=== PATIENT | female | born 1945 | race Caucasian/White ===

== ENCOUNTER 2017-07-08 07:00 | Inpatient (IN) ==
[~2017-07-08 07:00] MED LIST: DEXTROSE 50% 25 GM/50 ML SYRINGE IV PRN; GLUCAGON 1 MG VIAL IM PRN; SODIUM CHLORIDE 0.9% 1,000 ML IV SCH
[2017-07-08] MEDS: CHLORHEXIDINE 0.12% ORAL RINSE 60 ML BOTTLE SWISH/SPIT SCH ×2 (09:08→21:31)
[2017-07-08] MEDS ORDERED: ALPRAZolam 0.5 MG TABLET PO PRN (09:37)
[2017-07-08] MEDS ORDERED: DEXTROSE 50% 25 GM/50 ML VIAL IV PRN (10:30)
[2017-07-08] MEDS: PANTOPRAZOLE 40 MG TABLET PO SCH (10:57)
[2017-07-08] MEDS: LOSARTAN 50 MG TABLET PO SCH (10:57)
[2017-07-08] MEDS: hydroCHLOROthiazide 12.5 MG CAPSULE PO SCH (10:57)
[2017-07-08] MEDS: POTASSIUM CHLORIDE 10 MEQ TABLET PO SCH ×2 (10:57→21:31)
[2017-07-08] MEDS: ASPIRIN EC 81 MG TABLET PO SCH (10:57)
[2017-07-08 11:37] LABS: ABG HCO3 20.9 MMOL/L (20-26); ABG Oxygen Saturation 98.5 % (95-100); ABG PCO2 33.3 MM HG (35-48); ABG PH 7.416 (7.35-7.45); ABG PO2 131.9 MM HG (80-95); ABG TCO2 21.9 MMOL/L (23-27)
[2017-07-08 11:48] LABS: Basophils % 0.4 % (0.0-0.8); Eosinophils % 0.1 % (0.00-10.9); Hematocrit 30.8 VOL% (35.7-47.0); Hemoglobin 10.1 GM/DL (12.0-16.0); Immature Granulocytes % 3.5 %; Immature Granulocytes Absolute 0.24 #; Lymphocytes # 1.2 10*3/uL (1.4-4.0); Lymphocytes % 17.6 % (21.3-54.2); Mean Corpuscular HGB Conc 32.8 GM/DL (32-36); Mean Corpuscular Hemoglobin 29 PG (27-34); Mean Corpuscular Volume 87.5 FL (87-102); Mean Platelet Volume 9.5 FL (9.6-12.0); Monocytes # 0.8 10*3/uL (0.11-0.8); Monocytes % 11.8 % (1.7-12.7); Neutrophils # 4.5 10*3/uL (1.4-7.4); Neutrophils % 66.6 % (38.7-73.9); Platelet Count 212 T/CUMM (130-400); Red Blood Count 3.52 MC/CUMM (3.8-5.5); Red Cell Distribution Width 17.9 % (9.3-17.3); White Blood Count 6.8 T/CUMM (4-12)
[2017-07-08 12:11] LABS: Band Neutrophils 1 % (0-10); Hypochromasia 1+; Lymphocytes 15 % (20-55); Microcytosis 1+; Myelocytes 1 %; Segmented Neutrophils 72 % (50-85); Total Cells Counted 100
[2017-07-08 12:12] LABS: Platelet Estimate Normal
[2017-07-08 12:55] LABS: Albumin 2.2 G/DL (3.4-5.0); Bilirubin,Total 0.4 MG/DL (0.2-1.0); Calcium 8.1 MG/DL (8.5-10.1); Osmolality,Calculated 268.1 MOS/KG (273-304); Potassium 3.8 MMOL/L (3.5-5.1); Total Protein 6.2 G/DL (6.4-8.3)
[2017-07-08] MEDS: NITROGLYCERIN 2% OINT 1 INCH/GM PACK TOP SCH ×3 (13:12→23:55)
[2017-07-08] MEDS: METOPROLOL TARTRATE 25 MG TABLET PO SCH ×2 (13:12→21:30)
[2017-07-08] MEDS ORDERED: ENOXAPARIN 40 MG/0.4 ML SYRINGE SUBCUT ONE (13:30)
[2017-07-08] MEDS: CALCIUM CARBONATE CHEW 500 MG TABLET PO PRN ×2 (15:00→22:03)
[2017-07-08] MEDS ORDERED: oxyCODONE/ACETAMINOPHEN 5-325 MG TABLET PO PRN (16:04)
[2017-07-08] MEDS: ACETAMINOPHEN 325 MG TABLET PO PRN ×2 (16:26→23:55)
[2017-07-08] MEDS: ALPRAZolam 0.5 MG TABLET PO SCH (21:30)
[2017-07-09] MEDS: NITROGLYCERIN 2% OINT 1 INCH/GM PACK TOP SCH ×3 (05:41→18:52)
[2017-07-09] MEDS: ACETAMINOPHEN 325 MG TABLET PO PRN ×3 (05:41→18:53)
[2017-07-09] MEDS: hydroCHLOROthiazide 12.5 MG CAPSULE PO SCH (08:38)
[2017-07-09] MEDS: POTASSIUM CHLORIDE 10 MEQ TABLET PO SCH ×2 (08:38→21:18)
[2017-07-09] MEDS: LOSARTAN 50 MG TABLET PO SCH (08:38)
[2017-07-09] MEDS: PANTOPRAZOLE 40 MG TABLET PO SCH (08:38)
[2017-07-09] MEDS: ASPIRIN EC 81 MG TABLET PO SCH (08:38)
[2017-07-09] MEDS: ALPRAZolam 0.5 MG TABLET PO SCH ×3 (08:38→21:18)
[2017-07-09] MEDS: CHLORHEXIDINE 0.12% ORAL RINSE 60 ML BOTTLE SWISH/SPIT SCH ×2 (08:39→21:19)
[2017-07-09] MEDS: METOPROLOL TARTRATE 25 MG TABLET PO SCH ×2 (08:39→21:18)
[2017-07-09] MEDS: CHLORHEXIDINE 4% SOLN 118 ML BOTTLE TOP SCH ×2 (16:20→22:42)
[2017-07-10] MEDS: NITROGLYCERIN 2% OINT 1 INCH/GM PACK TOP SCH ×2 (02:56→06:10)
[2017-07-10] MEDS ORDERED: FAMOTIDINE 20 MG TABLET PO ONE (05:30)
[2017-07-10] MEDS ORDERED: LORazepam 0.5 MG TABLET PO ONE (05:30)
[2017-07-10] MEDS ORDERED: VANCOMYCIN 1,000 MG VIAL ONE ×2 (05:36→06:27)
[2017-07-10] MEDS ORDERED: PAPAVERINE 60 MG/2 ML VIAL ONE (05:36)
[2017-07-10] MEDS ORDERED: CEFUROXIME INJ 1,500 MG in SODIUM CHLORIDE 0.9% 100 ML IV ONE (06:00)
[2017-07-10] MEDS ORDERED: PHENYLEPHRINE DRIP 20 MG/250 ML PREMIX IV ONE ×2 (06:04→09:48)
[2017-07-10] MEDS ORDERED: CALCIUM CHLORIDE 1,000 MG/10 ML VIAL IV ONE (06:04)
[2017-07-10] MEDS ORDERED: NITROGLYCERIN DRIP 50 MG/250 ML BOTTLE IV ONE (06:05)
[2017-07-10] MEDS ORDERED: LACTATED RINGERS 1,000 ML IV ONE (06:05)
[2017-07-10] MEDS ORDERED: SODIUM CHLORIDE 0.9% 1,000 ML IV ONE (06:05)
[2017-07-10] MEDS ORDERED: HEPARIN/NACL 0.9% 2 UNITS/ML 500 ML IV ONE (06:05)
[2017-07-10] MEDS: METOPROLOL TARTRATE 25 MG TABLET PO SCH (06:08)
[2017-07-10] MEDS: hydroCHLOROthiazide 12.5 MG CAPSULE PO SCH (06:08)
[2017-07-10] MEDS: PANTOPRAZOLE 40 MG TABLET PO SCH ×2 (06:08→19:42)
[2017-07-10] MEDS: LOSARTAN 50 MG TABLET PO SCH (06:10)
[2017-07-10] MEDS: CHLORHEXIDINE 4% SOLN 118 ML BOTTLE TOP SCH ×2 (06:11→11:13)
[2017-07-10] MEDS ORDERED: TRANEXAMIC ACID 1,000 MG/10 ML VIAL IV ONE (06:13)
[2017-07-10] MEDS ORDERED: SODIUM CHLORIDE 0.9% 1,000 ML IV SCH (07:00)
[2017-07-10 07:38] LABS: ABG Base Excess -4.2 MMOL/L (-2.5-2.5); ABG HCO3 20.9 MMOL/L (20-26); ABG PCO2 35.9 MM HG (35-48); ABG PH 7.366 (7.35-7.45); ABG TCO2 19.1 MMOL/L (23-27); Glucose Heart Surgery 87 MG/DL (74-106); Hematocrit Heart Surgery 26.5 PERCENT (37-47); Hemoglobin Heart Surgery 8.5 G/DL (12.0-16.0); Ionized Calcium Arterial 1.15 MMOL/L (1.21-1.46); PCO2 Patient Temp Arterial 35.9 MMHG; PH Patient Temp Arterial 7.366; Patient Temperature 37 CELCIUS; Potassium Heart/CVR 3.5 MMOL/L (3.5-5.1); Sodium Heart/CVR 135 MMOL/L (135-145)
[2017-07-10 08:35] LABS: Hematocrit Heart Surgery 26.5 PERCENT (37-47); Hemoglobin Heart Surgery 8.5 G/DL (12.0-16.0); PCO2 Patient Temp Venous 34.1 MM HG; PH Patient Temp Venous 7.368; PO2 Patient Temp Venous 40.8 MM HG; Potassium Heart/CVR 4.3 MMOL/L (3.5-5.1); VBG HCO3 20.1 MEQ/L (24-28); VBG Oxygen Saturation 84.2 %; VBG PCO2 39.4 MMHG (41-51); VBG PH 7.326; VBG PO2 50.1 MMHG (17-40)
[2017-07-10 08:54] LABS: Apearance,Urine CLEAR (Clear); Bacteria,Urine Occasional /HPF (Few); Bilirubin,Urine Negative (Negative); Blood, Urine Moderate mg/dL (Negative); Glucose,Urine (UA) Negative (Negative); Hyaline Casts,Urine 1 /LPF (0-3); Ketones,Urine Negative (Negative); Mucus,Urine Occasional /LPF (Occasional); Nitrite,Urine Negative (Negative); Protein,Urine 30 MG/DL; RBC,Urine 1 /HPF (0-4); Urine Color Yellow (Yellow); Urine Specific Gravity 1.005 (1.001-1.035); Urine Urobilinogen < 2.0 EU/DL (0.2-1.0); WBC,Urine <1 /HPF (0-6)
[2017-07-10 09:09] LABS: Hemoglobin Heart Surgery 9.4 G/DL (12.0-16.0); PCO2 Patient Temp Venous 33.6 MM HG; PH Patient Temp Venous 7.458; Potassium Heart/CVR 3.9 MMOL/L (3.5-5.1); VBG Base Excess -0.4 MEQ/L (0-4); VBG HCO3 23.5 MEQ/L (24-28); VBG Oxygen Saturation 71.7 %; VBG PCO2 35.1 MMHG (41-51); VBG PH 7.443; VBG PO2 30.5 MMHG (17-40)
[2017-07-10 09:10] LABS: PO2 Patient Temp Venous 33.6 MM HG
[2017-07-10] MEDS ORDERED: PHENYLEPHRINE DRIP 40 MG/250 ML PREMIX IV ONE (09:27)
[2017-07-10] MEDS ORDERED: NITROPRUSSIDE 50 MG/2 ML VIAL ONE (09:27)
[2017-07-10] MEDS ORDERED: CALCIUM CHLORIDE 1,000 MG/10 ML SYRINGE IV ONE (09:28)
[2017-07-10] MEDS ORDERED: SODIUM BICARBONATE 50 MEQ/50 ML SYRINGE IV ONE ×4 (09:28→21:29)
[2017-07-10 09:41] LABS: ABG Base Excess -1.4 MMOL/L (-2.5-2.5); ABG HCO3 23.3 MMOL/L (20-26); ABG PCO2 37.2 MM HG (35-48); Glucose Heart Surgery 160 MG/DL (74-106); Hematocrit Heart Surgery 31.1 PERCENT (37-47); Ionized Calcium Arterial 1.25 MMOL/L (1.21-1.46); PCO2 Patient Temp Arterial 37.2 MMHG; Patient Temperature 37 CELCIUS; Potassium Heart/CVR 4.1 MMOL/L (3.5-5.1); Sodium Heart/CVR 131 MMOL/L (135-145)
[2017-07-10] MEDS ORDERED: DEXTROSE 5% KCL 20 MEQ 20 MEQ/1,000 ML BAG IV ONE (09:48)
[2017-07-10] MEDS ORDERED: ALBUMIN 25% 25 GM/100 ML VIAL IV ONE (09:48)
[2017-07-10] MEDS ORDERED: MAGNESIUM SULFATE 1 GM/2 ML VIAL ONE (09:49)
[2017-07-10] MEDS ORDERED: methylPREDNISolone SOD SUC 1,000 MG/8 ML VIAL ONE (09:49)
[2017-07-10] MEDS ORDERED: FUROSEMIDE 20 MG/2 ML VIAL ONE (09:49)
[2017-07-10] MEDS ORDERED: MANNITOL 12.5 GM/50 ML VIAL IV ONE (09:49)
[2017-07-10] MEDS ORDERED: PROTAMINE SULFATE 50 MG/5 ML VIAL IV ONE ×3 (09:49→11:25)
[2017-07-10] MEDS ORDERED: HEPARIN 10,000 UNIT/10 ML VIAL ONE (09:49)
[2017-07-10] MEDS ORDERED: POTASSIUM CHLORIDE 20 MEQ/10 ML VIAL ONE (09:50)
[2017-07-10] MEDS ORDERED: POTASSIUM CHLORIDE RIDER 100 ML IV ONE (09:52)
[2017-07-10] MEDS ORDERED: ALBUMIN 5% 12.5 GM/250 ML VIAL IV ONE (10:52)
[2017-07-10] MEDS ORDERED: DEXTROSE 50% 25 GM/50 ML VIAL IV PRN ×2 (11:10)
[2017-07-10] MEDS ORDERED: LACTATED RINGERS 250 ML IV PRN (11:10)
[2017-07-10] MEDS ORDERED: MIDAZOLAM 10 MG/2 ML VIAL IV PRN (11:10)
[2017-07-10] MEDS ORDERED: VECURONIUM 10 MG VIAL IV PRN ×2 (11:10)
[2017-07-10] MEDS ORDERED: INSULIN REGULAR 100 UNIT/ML IV PRN (11:10)
[2017-07-10] MEDS ORDERED: PHENYLEPHRINE DRIP 40 MG/250 ML PREMIX IV PRN (11:10)
[2017-07-10] MEDS ORDERED: MAGNESIUM SULF RIDER 2 GM in PREMIX 1 EACH IV PRN (11:10)
[2017-07-10] MEDS ORDERED: ONDANSETRON 4 MG/2 ML VIAL IV PRN (11:10)
[2017-07-10] MEDS ORDERED: MAGNESIUM SULF RIDER 4 GM in PREMIX 1 EACH IV PRN (11:10)
[2017-07-10] MEDS ORDERED: ACETAMINOPHEN 650 MG SUPP RECTAL PRN (11:10)
[2017-07-10] MEDS ORDERED: INSULIN REGULAR 100 UNIT/ML IV ONE (11:10)
[2017-07-10] MEDS ORDERED: CALCIUM CHLORIDE 1,000 MG/10 ML SYRINGE IV PRN (11:10)
[2017-07-10] MEDS: SODIUM CHLORIDE 0.45% 1,000 ML IV SCH ×2 (11:14→11:24)
[2017-07-10 11:18] LABS: Basophils % 0.2 % (0.0-0.8); Eosinophils % 0.1 % (0.00-10.9); Hematocrit 32.5 VOL% (35.7-47.0); Hemoglobin 11.4 GM/DL (12.0-16.0); Immature Granulocytes Absolute 0.51 #; Lymphocytes # 0.9 10*3/uL (1.4-4.0); Lymphocytes % 5.3 % (21.3-54.2); Mean Corpuscular HGB Conc 35.1 GM/DL (32-36); Mean Corpuscular Hemoglobin 30 PG (27-34); Mean Platelet Volume 9.5 FL (9.6-12.0); Monocytes # 0.9 10*3/uL (0.11-0.8); Neutrophils # 14.9 10*3/uL (1.4-7.4); Neutrophils % 86.4 % (38.7-73.9); Platelet Count 182 T/CUMM (130-400); Red Blood Count 3.87 MC/CUMM (3.8-5.5); Red Cell Distribution Width 15.8 % (9.3-17.3); White Blood Count 17.2 T/CUMM (4-12)
[2017-07-10] MEDS: KETOROLAC 30 MG/1 ML VIAL IV SCH ×3 (11:23→23:54)
[2017-07-10 11:26] LABS: ABG Base Excess -2.6 MMOL/L (-2.5-2.5); ABG HCO3 22.3 MMOL/L (20-26); ABG PCO2 29.7 MM HG (35-48); ABG PH 7.446 (7.35-7.45); ABG TCO2 18.2 MMOL/L (23-27); Glucose Heart Surgery 121 MG/DL (74-106); Hematocrit Heart Surgery 34.5 PERCENT (37-47); Hemoglobin Heart Surgery 11.2 G/DL (12.0-16.0); Potassium Heart/CVR 3.5 MMOL/L (3.5-5.1)
[2017-07-10 11:27] LABS: INR 1.4; PT Patient Result 14.1 SECS
[2017-07-10] MEDS: POTASSIUM CHLORIDE RIDER 20 MEQ in PREMIX 1 EACH IV PRN (11:38)
[2017-07-10 11:42] LABS: Eosinophils 1 % (0-10); Segmented Neutrophils 66 % (50-85); Total Cells Counted 100
[2017-07-10 11:43] LABS: Band Neutrophils 30 % (0-10); Lymphocytes 1 % (20-55)
[2017-07-10] MEDS ORDERED: SEVOFLURANE 1 UNIT/15 MINUTE INH ONE (11:43)
[2017-07-10] MEDS ORDERED: SUFentanil 50 MCG/ML AMP ONE ×2 (11:44→11:48)
[2017-07-10] MEDS ORDERED: SUFentanil 250 MCG/5 ML AMP ONE (11:44)
[2017-07-10] MEDS ORDERED: MIDAZOLAM 10 MG/2 ML VIAL ONE ×2 (11:44)
[2017-07-10] MEDS ORDERED: MINERAL OIL/PETROLATUM OPH OINT 3.5 GM TUBE ONE (11:45)
[2017-07-10] MEDS ORDERED: ePHEDrine 50 MG/ML AMP ONE (11:45)
[2017-07-10] MEDS ORDERED: ETOMIDATE 20 MG/10 ML VIAL IV ONE (11:46)
[2017-07-10] MEDS ORDERED: SODIUM CHLORIDE 0.9% 100 ML IV ONE (11:47)
[2017-07-10] MEDS ORDERED: SODIUM CHLORIDE 0.9% 250 ML IV ONE (11:47)
[2017-07-10] MEDS ORDERED: VECURONIUM 10 MG VIAL IV ONE (11:47)
[2017-07-10] MEDS: POTASSIUM CHLORIDE RIDER 10 MEQ in PREMIX 1 EACH IV PRN (12:09)
[2017-07-10] MEDS: ALBUMIN 5% 12.5 GM in PREMIX 1 EACH IV PRN ×6 (12:10→23:00)
[2017-07-10 12:11] LABS: Albumin 1.8 G/DL (3.4-5.0); Bilirubin,Total 1.1 MG/DL (0.2-1.0); Calcium 7.5 MG/DL (8.5-10.1); Magnesium 1.5 MG/DL (1.8-2.4); Osmolality,Calculated 274.7 MOS/KG (273-304); Potassium 3.8 MMOL/L (3.5-5.1); Total Protein 4.4 G/DL (6.4-8.3)
[2017-07-10 12:38] LABS: CKMB % 5.2 %
[2017-07-10 12:39] LABS: Troponin I Only 5.36 NG/ML (0.00-0.045)
[2017-07-10 12:56] LABS: ABG Base Excess -2.3 MMOL/L (-2.5-2.5); ABG HCO3 22.5 MMOL/L (20-26); ABG Oxygen Saturation 99.9 % (95-100); ABG PCO2 26.9 MM HG (35-48); ABG TCO2 17.8 MMOL/L (23-27); Glucose Heart Surgery 111 MG/DL (74-106); Hematocrit Heart Surgery 34.7 PERCENT (37-47); Hemoglobin Heart Surgery 11.3 G/DL (12.0-16.0); Potassium Heart/CVR 4.4 MMOL/L (3.5-5.1)
[2017-07-10] MEDS ORDERED: DILTIAZEM 50 MG/10 ML VIAL IV ONE ×3 (13:04→13:30)
[2017-07-10] MEDS ORDERED: AMIODARONE 150 MG/3 ML VIAL ONE (13:04)
[2017-07-10] MEDS: MIDAZOLAM 2 MG/2 ML VIAL IV PRN ×5 (13:19→22:20)
[2017-07-10] MEDS ORDERED: AMIODARONE INJ 150 MG in DEXTROSE 5% 100 ML IV ONE (13:30)
[2017-07-10] MEDS ORDERED: AMIODARONE INJ 450 MG in DEXTROSE 5% 241 ML IV SCH (13:30)
[2017-07-10] MEDS: MORPHINE 10 MG/1 ML VIAL IV PRN ×2 (14:20→16:30)
[2017-07-10 15:12] LABS: ABG Base Excess -4.1 MMOL/L (-2.5-2.5); ABG HCO3 20.2 MMOL/L (20-26); ABG Oxygen Saturation 98.6 % (95-100); ABG PCO2 33.9 MM HG (35-48); ABG PH 7.392 (7.35-7.45); ABG PO2 170.9 MM HG (80-95); ABG TCO2 21.2 MMOL/L (23-27); Glucose Heart Surgery 120 MG/DL (74-106); Hemoglobin Heart Surgery 11.3 G/DL (12.0-16.0); Potassium Heart/CVR 4.4 MMOL/L (3.5-5.1)
[2017-07-10] MEDS: NITROPRUSSIDE 100 MG in DEXTROSE 5% 250 ML IV PRN (15:50)
[2017-07-10] MEDS: DILTIAZEM INJ 100 MG in SODIUM CHLORIDE 0.9% 100 ML IV SCH (16:28)
[2017-07-10] MEDS ORDERED: FUROSEMIDE 40 MG/4 ML VIAL ONE (17:21)
[2017-07-10 17:53] LABS: ABG Base Excess -6.5 MMOL/L (-2.5-2.5); ABG HCO3 19.1 MMOL/L (20-26); ABG Oxygen Saturation 98.5 % (95-100); ABG PCO2 37.2 MM HG (35-48); ABG PH 7.317 (7.35-7.45); ABG TCO2 17.3 MMOL/L (23-27); Glucose Heart Surgery 180 MG/DL (74-106); Hematocrit Heart Surgery 33.6 PERCENT (37-47); Hemoglobin Heart Surgery 10.9 G/DL (12.0-16.0); Potassium Heart/CVR 4.4 MMOL/L (3.5-5.1)
[2017-07-10] MEDS: INSULIN REGULAR DRIP 100 ML IV SCH (18:15)
[2017-07-10] MEDS: LACTATED RINGERS 1,000 ML IV PRN ×2 (19:17→19:20)
[2017-07-10] MEDS ORDERED: SODIUM BICARBONATE 50 MEQ/50 ML VIAL IV ONE (19:23)
[2017-07-10] MEDS ORDERED: FUROSEMIDE 40 MG/4 ML VIAL IV ONE (19:23)
[2017-07-10] MEDS ORDERED: AMIODARONE INJ 450 MG in DEXTROSE 5% 241 ML IV ONE (19:30)
[2017-07-10] MEDS: ALPRAZolam 0.5 MG TABLET PO SCH (19:41)
[2017-07-10] MEDS: ASPIRIN EC 81 MG TABLET PO SCH (19:42)
[2017-07-10] MEDS: POTASSIUM CHLORIDE 10 MEQ TABLET PO SCH (19:42)
[2017-07-10] MEDS: CHLORHEXIDINE 0.12% ORAL RINSE 60 ML BOTTLE SWISH/SPIT SCH ×2 (19:42→20:59)
[2017-07-10] MEDS: CEFUROXIME INJ 1,500 MG in SODIUM CHLORIDE 0.9% 100 ML IV SCH (19:48)
[2017-07-10 20:31] LABS: ABG Base Excess -5.4 MMOL/L (-2.5-2.5); ABG HCO3 20.9 MMOL/L (20-26); ABG Oxygen Saturation 98.4 % (95-100); ABG PCO2 44.2 MM HG (35-48); ABG PH 7.293 (7.35-7.45); ABG PO2 148.1 MM HG (80-95); ABG TCO2 22.3 MMOL/L (23-27); Glucose Heart Surgery 140 MG/DL (74-106); Hemoglobin Heart Surgery 11.7 G/DL (12.0-16.0); Potassium Heart/CVR 4.1 MMOL/L (3.5-5.1)
[2017-07-10 20:40] LABS: CKMB % 4.7 %
[2017-07-10 20:44] LABS: Troponin I Only 4.37 NG/ML (0.00-0.045)
[2017-07-10] MEDS: MORPHINE 2 MG/1 ML SYRINGE IV PRN (20:46)
[2017-07-10] MEDS ORDERED: FUROSEMIDE 100 MG/10 ML VIAL IV ONE (21:29)
[2017-07-10] MEDS ORDERED: DOBUTamine 500 MG/250 ML PREMIX IV ONE (21:29)
[2017-07-10] MEDS: DOBUTamine 500 MG/250 ML PREMIX IV SCH (21:37)
[2017-07-10 22:53] LABS: ABG Base Excess -3.3 MMOL/L (-2.5-2.5); ABG HCO3 20.2 MMOL/L (20-26); ABG Oxygen Saturation 98.7 % (95-100); ABG PCO2 31.1 MM HG (35-48); ABG PO2 170.8 MM HG (80-95); ABG TCO2 21.1 MMOL/L (23-27); Glucose Heart Surgery 89 MG/DL (74-106); Hemoglobin Heart Surgery 11.7 G/DL (12.0-16.0)
[2017-07-11 00:48] LABS: ABG Base Excess -1.7 MMOL/L (-2.5-2.5); ABG HCO3 20.8 MMOL/L (20-26); ABG Oxygen Saturation 98.9 % (95-100); ABG PH 7.488 (7.35-7.45); ABG PO2 203.9 MM HG (80-95); ABG TCO2 21.6 MMOL/L (23-27); Glucose Heart Surgery 88 MG/DL (74-106); Hemoglobin Heart Surgery 10.9 G/DL (12.0-16.0)
[2017-07-11 01:42] LABS: ABG HCO3 20.8 MMOL/L (20-26); ABG Oxygen Saturation 98.8 % (95-100); ABG PCO2 29.4 MM HG (35-48); ABG PH 7.468 (7.35-7.45); ABG PO2 211.1 MM HG (80-95); ABG TCO2 21.7 MMOL/L (23-27); Glucose Heart Surgery 104 MG/DL (74-106); Hemoglobin Heart Surgery 11.2 G/DL (12.0-16.0); Potassium Heart/CVR 4.3 MMOL/L (3.5-5.1)
[2017-07-11] MEDS: MORPHINE 2 MG/1 ML SYRINGE IV PRN ×2 (01:43→15:01)
[2017-07-11] MEDS: MORPHINE 10 MG/1 ML VIAL IV PRN (02:25)
[2017-07-11] MEDS: MIDAZOLAM 2 MG/2 ML VIAL IV PRN (03:08)
[2017-07-11 04:05] LABS: ABG Base Excess -3.9 MMOL/L (-2.5-2.5); ABG HCO3 21.1 MMOL/L (20-26); ABG Oxygen Saturation 98.4 % (95-100); ABG PCO2 38.1 MM HG (35-48); ABG PH 7.361 (7.35-7.45); ABG TCO2 22.3 MMOL/L (23-27); Glucose Heart Surgery 131 MG/DL (74-106); Hemoglobin Heart Surgery 10.9 G/DL (12.0-16.0)
[2017-07-11 04:16] LABS: Basophils % 0.1 % (0.0-0.8); Hematocrit 30.3 VOL% (35.7-47.0); Hemoglobin 10.4 GM/DL (12.0-16.0); Immature Granulocytes % 1.6 %; Immature Granulocytes Absolute 0.29 #; Lymphocytes # 1.4 10*3/uL (1.4-4.0); Lymphocytes % 7.6 % (21.3-54.2); Mean Corpuscular HGB Conc 34.3 GM/DL (32-36); Mean Corpuscular Hemoglobin 29 PG (27-34); Mean Corpuscular Volume 83.9 FL (87-102); Mean Platelet Volume 10.3 FL (9.6-12.0); Monocytes # 1.5 10*3/uL (0.11-0.8); Monocytes % 8.3 % (1.7-12.7); Neutrophils # 14.7 10*3/uL (1.4-7.4); Neutrophils % 82.4 % (38.7-73.9); Platelet Count 174 T/CUMM (130-400); Red Blood Count 3.61 MC/CUMM (3.8-5.5); Red Cell Distribution Width 17.5 % (9.3-17.3); White Blood Count 17.8 T/CUMM (4-12)
[2017-07-11 04:47] LABS: Albumin 3.2 G/DL (3.4-5.0); Bilirubin,Direct 0.37 MG/DL (0.0-0.20); Bilirubin,Total 0.7 MG/DL (0.2-1.0); Calcium 7.9 MG/DL (8.5-10.1); Magnesium 2.3 MG/DL (1.8-2.4); Osmolality,Calculated 278.5 MOS/KG (273-304); Potassium 4.1 MMOL/L (3.5-5.1); Total Protein 5.6 G/DL (6.4-8.3)
[2017-07-11 05:11] LABS: CKMB % 4.6 %
[2017-07-11 05:18] LABS: Troponin I Only 3.32 NG/ML (0.00-0.045)
[2017-07-11] MEDS: CEFUROXIME INJ 1,500 MG in SODIUM CHLORIDE 0.9% 100 ML IV SCH ×2 (06:16→19:00)
[2017-07-11] MEDS: KETOROLAC 30 MG/1 ML VIAL IV SCH ×3 (06:17→17:24)
[2017-07-11 07:24] LABS: ABG Base Excess -4.3 MMOL/L (-2.5-2.5); ABG HCO3 20.8 MMOL/L (20-26); ABG Oxygen Saturation 98.7 % (95-100); ABG PCO2 47.1 MM HG (35-48); ABG PH 7.286 (7.35-7.45); ABG TCO2 20.7 MMOL/L (23-27); Glucose Heart Surgery 147 MG/DL (74-106); Hematocrit Heart Surgery 31.2 PERCENT (37-47); Hemoglobin Heart Surgery 10.1 G/DL (12.0-16.0)
[2017-07-11] MEDS ORDERED: GLUCAGON 1 MG VIAL IM PRN (08:35)
[2017-07-11] MEDS ORDERED: DEXTROSE 50% 25 GM/50 ML VIAL IV PRN (08:35)
[2017-07-11] MEDS ORDERED: CALCIUM CARBONATE CHEW 500 MG TABLET PO PRN (08:35)
[2017-07-11] MEDS ORDERED: AMIODARONE 200 MG TABLET PO SCH (09:00)
[2017-07-11] MEDS: hydroCHLOROthiazide 12.5 MG CAPSULE PO SCH (09:30)
[2017-07-11] MEDS: ALPRAZolam 0.5 MG TABLET PO SCH ×3 (09:30→21:16)
[2017-07-11] MEDS: PANTOPRAZOLE 40 MG TABLET PO SCH (09:31)
[2017-07-11] MEDS: CHLORHEXIDINE 0.12% ORAL RINSE 60 ML BOTTLE SWISH/SPIT SCH ×2 (09:31→21:16)
[2017-07-11] MEDS: METOPROLOL TARTRATE 25 MG TABLET PO SCH ×2 (09:31→21:16)
[2017-07-11] MEDS: ASPIRIN EC 81 MG TABLET PO SCH (09:31)
[2017-07-11] MEDS ORDERED: NITROPRUSSIDE 50 MG/2 ML VIAL ONE (11:15)
[2017-07-11] MEDS: NITROPRUSSIDE 100 MG in DEXTROSE 5% 250 ML IV PRN (11:22)
[2017-07-11] MEDS ORDERED: FUROSEMIDE 40 MG/4 ML VIAL IV ONE (13:12)
[2017-07-11] MEDS ORDERED: HEPARIN/NACL 0.9% 2 UNITS/ML 500 ML IV ONE (14:59)
[2017-07-11] MEDS: ALBUMIN 5% 12.5 GM in PREMIX 1 EACH IV PRN ×2 (17:54→19:52)
[2017-07-11] MEDS: INSULIN REGULAR DRIP 100 ML IV SCH (18:33)
[2017-07-11] MEDS: SODIUM CHLORIDE 0.45% 1,000 ML IV SCH ×2 (18:33)
[2017-07-11] MEDS: DILTIAZEM INJ 100 MG in SODIUM CHLORIDE 0.9% 100 ML IV SCH (18:34)
[2017-07-11] MEDS: DOBUTamine 500 MG/250 ML PREMIX IV SCH (23:30)
[2017-07-12 04:36] LABS: Basophils % 0.1 % (0.0-0.8); Eosinophils % 0.1 % (0.00-10.9); Hematocrit 29.3 VOL% (35.7-47.0); Hemoglobin 9.9 GM/DL (12.0-16.0); Immature Granulocytes % 3.2 %; Immature Granulocytes Absolute 0.59 #; Lymphocytes # 1.7 10*3/uL (1.4-4.0); Lymphocytes % 9.2 % (21.3-54.2); Mean Corpuscular HGB Conc 33.8 GM/DL (32-36); Mean Corpuscular Hemoglobin 29 PG (27-34); Mean Corpuscular Volume 86.9 FL (87-102); Mean Platelet Volume 10.4 FL (9.6-12.0); Monocytes # 2.2 10*3/uL (0.11-0.8); Monocytes % 11.8 % (1.7-12.7); Neutrophils # 13.8 10*3/uL (1.4-7.4); Neutrophils % 75.6 % (38.7-73.9); Platelet Count 175 T/CUMM (130-400); Red Blood Count 3.37 MC/CUMM (3.8-5.5); Red Cell Distribution Width 18.9 % (9.3-17.3); White Blood Count 18.3 T/CUMM (4-12)
[2017-07-12 05:13] LABS: Alanine Aminotransferase 46 U/L (13-56); Alkaline Phosphatase 85 U/L (45-117); Aspartate Amino Transferase 79 U/L (0-37); Bilirubin,Total < 0.39 MG/DL (0.2-1.0); Blood Urea Nitrogen 22 MG/DL (7-18); Calcium 7.8 MG/DL (8.5-10.1); Glucose 100 MG/DL (74-106); Magnesium 2.4 MG/DL (1.8-2.4); Potassium 4.3 MMOL/L (3.5-5.1); Sodium 136 MMOL/L (136-145); Total Protein 5.7 G/DL (6.4-8.3)
[2017-07-12 06:20] LABS: Band Neutrophils 7 % (0-10); Lymphocytes 9 % (20-55); Segmented Neutrophils 77 % (50-85)
[2017-07-12 06:21] LABS: Ovalocytes Few; Platelet Estimate Normal; Polychromasia Few
[2017-07-12 06:22] LABS: Anisocytosis Slight; Microcytosis Slight
[2017-07-12 06:23] LABS: Total Cells Counted 100
[2017-07-12] MEDS ORDERED: FUROSEMIDE 40 MG/4 ML VIAL IV ONE (08:42)
[2017-07-12] MEDS: MORPHINE 2 MG/1 ML SYRINGE IV PRN ×2 (09:21→20:08)
[2017-07-12] MEDS: CHLORHEXIDINE 0.12% ORAL RINSE 60 ML BOTTLE SWISH/SPIT SCH ×2 (09:26→20:20)
[2017-07-12] MEDS: PANTOPRAZOLE 40 MG TABLET PO SCH (09:26)
[2017-07-12] MEDS: METOPROLOL TARTRATE 25 MG TABLET PO SCH ×2 (09:26→20:08)
[2017-07-12] MEDS: ASPIRIN EC 81 MG TABLET PO SCH (09:26)
[2017-07-12] MEDS: hydroCHLOROthiazide 12.5 MG CAPSULE PO SCH (09:26)
[2017-07-12] MEDS: ALPRAZolam 0.5 MG TABLET PO SCH ×3 (09:26→20:08)
[2017-07-12] MEDS ORDERED: NITROPRUSSIDE 50 MG/2 ML VIAL ONE (11:09)
[2017-07-12] MEDS: NITROPRUSSIDE 100 MG in DEXTROSE 5% 250 ML IV PRN (11:15)
[2017-07-12] MEDS: SODIUM CHLORIDE 0.45% 1,000 ML IV SCH ×2 (13:49)
[2017-07-12] MEDS: INSULIN REGULAR DRIP 100 ML IV SCH (13:50)
[2017-07-12] MEDS: DILTIAZEM INJ 100 MG in SODIUM CHLORIDE 0.9% 100 ML IV SCH (13:50)
[2017-07-12] MEDS: DOBUTamine 500 MG/250 ML PREMIX IV SCH (21:46)
[2017-07-13] MEDS: MORPHINE 2 MG/1 ML SYRINGE IV PRN (03:25)
[2017-07-13 04:07] LABS: ABG HCO3 22.8 MMOL/L (20-26); ABG Oxygen Saturation 99.3 % (95-100); ABG PCO2 41.8 MM HG (35-48); ABG PH 7.356 (7.35-7.45); ABG TCO2 21.3 MMOL/L (23-27)
[2017-07-13 04:22] LABS: Basophils % 0.1 % (0.0-0.8); Eosinophils # 0.1 10*3/uL (0.0-0.87); Eosinophils % 0.4 % (0.00-10.9); Hematocrit 31.1 VOL% (35.7-47.0); Hemoglobin 10.4 GM/DL (12.0-16.0); Immature Granulocytes % 4.5 %; Immature Granulocytes Absolute 0.75 #; Lymphocytes # 1.8 10*3/uL (1.4-4.0); Lymphocytes % 10.6 % (21.3-54.2); Mean Corpuscular HGB Conc 33.4 GM/DL (32-36); Mean Corpuscular Hemoglobin 29 PG (27-34); Mean Corpuscular Volume 87.6 FL (87-102); Mean Platelet Volume 10.1 FL (9.6-12.0); Monocytes # 1.5 10*3/uL (0.11-0.8); Monocytes % 8.9 % (1.7-12.7); NRBC # 0.02 10*3/uL; Neutrophils # 12.5 10*3/uL (1.4-7.4); Neutrophils % 75.5 % (38.7-73.9); Platelet Count 191 T/CUMM (130-400); Red Blood Count 3.55 MC/CUMM (3.8-5.5); Red Cell Distribution Width 18.8 % (9.3-17.3); White Blood Count 16.6 T/CUMM (4-12)
[2017-07-13 04:51] LABS: Alanine Aminotransferase 51 U/L (13-56); Albumin 2.6 G/DL (3.4-5.0); Alkaline Phosphatase 98 U/L (45-117); Aspartate Amino Transferase 78 U/L (0-37); Bilirubin,Direct < 0.100 MG/DL (0.0-0.20); Blood Urea Nitrogen 30 MG/DL (7-18); Calcium 7.8 MG/DL (8.5-10.1); Glucose 91 MG/DL (74-106); Magnesium 2.2 MG/DL (1.8-2.4); Osmolality,Calculated 273.2 MOS/KG (273-304); Potassium 3.7 MMOL/L (3.5-5.1); Sodium 134 MMOL/L (136-145); Total Protein 5.2 G/DL (6.4-8.3)
[2017-07-13 05:00] LABS: Anisocytosis 1+; Lymphocytes 6 % (20-55); Macrocytosis 1+; Platelet Estimate Normal; Polychromasia Few; Segmented Neutrophils 85 % (50-85); Total Cells Counted 100
[2017-07-13] MEDS: POTASSIUM CHLORIDE RIDER 10 MEQ in PREMIX 1 EACH IV PRN (05:10)
[2017-07-13] MEDS: POTASSIUM CHLORIDE RIDER 20 MEQ in PREMIX 1 EACH IV PRN (06:50)
[2017-07-13] MEDS: ACIPHEX 20 MG PO SCH (08:05)
[2017-07-13] MEDS: NITROGLYCERIN DRIP 50 MG/250 ML BOTTLE IV SCH (10:15)
[2017-07-13] MEDS: ALPRAZolam 0.5 MG TABLET PO SCH ×3 (10:28→20:41)
[2017-07-13] MEDS: CHLORHEXIDINE 0.12% ORAL RINSE 60 ML BOTTLE SWISH/SPIT SCH ×2 (10:28→20:41)
[2017-07-13] MEDS: hydroCHLOROthiazide 12.5 MG CAPSULE PO SCH (10:29)
[2017-07-13] MEDS: oxyCODONE/ACETAMINOPHEN 5-325 MG TABLET PO PRN (10:29)
[2017-07-13] MEDS: ASPIRIN EC 81 MG TABLET PO SCH (10:29)
[2017-07-13] MEDS: METOPROLOL TARTRATE 25 MG TABLET PO SCH ×2 (10:29→20:41)
[2017-07-13] MEDS: ACETAMINOPHEN 325 MG TABLET PO PRN ×2 (11:06→20:41)
[2017-07-13] MEDS ORDERED: NITROGLYCERIN DRIP 50 MG/250 ML BOTTLE IV ONE (11:38)
[2017-07-13] MEDS: INSULIN REGULAR DRIP 100 ML IV SCH (13:14)
[2017-07-13] MEDS: SODIUM CHLOR 0.45% KCL 20 MEQ 20 MEQ/1,000 ML BAG IV SCH (14:13)
[2017-07-13] MEDS: SODIUM CHLORIDE 0.45% 1,000 ML IV SCH ×2 (14:25)
[2017-07-13] MEDS ORDERED: FUROSEMIDE 40 MG/4 ML VIAL IV ONE (15:02)
[2017-07-13] MEDS: DOBUTamine 500 MG/250 ML PREMIX IV SCH (23:23)
[2017-07-14] MEDS: DOBUTamine 500 MG/250 ML PREMIX IV SCH ×2 (01:00→23:13)
[2017-07-14 05:16] LABS: ABG Base Excess -0.7 MMOL/L (-2.5-2.5); ABG HCO3 23.8 MMOL/L (20-26); ABG Oxygen Saturation 97.9 % (95-100); ABG PH 7.389 (7.35-7.45); ABG PO2 95.1 MM HG (80-95); ABG TCO2 21.7 MMOL/L (23-27)
[2017-07-14 05:19] LABS: Basophils % 0.3 % (0.0-0.8); Eosinophils # 0.1 10*3/uL (0.0-0.87); Eosinophils % 0.4 % (0.00-10.9); Hematocrit 33.3 VOL% (35.7-47.0); Hemoglobin 11.1 GM/DL (12.0-16.0); Immature Granulocytes % 4.2 %; Immature Granulocytes Absolute 0.67 #; Lymphocytes # 1.2 10*3/uL (1.4-4.0); Lymphocytes % 7.7 % (21.3-54.2); Mean Corpuscular HGB Conc 33.3 GM/DL (32-36); Mean Corpuscular Hemoglobin 29 PG (27-34); Mean Corpuscular Volume 87.9 FL (87-102); Mean Platelet Volume 9.8 FL (9.6-12.0); Monocytes # 1.2 10*3/uL (0.11-0.8); Monocytes % 7.5 % (1.7-12.7); Neutrophils # 12.7 10*3/uL (1.4-7.4); Neutrophils % 79.9 % (38.7-73.9); Platelet Count 170 T/CUMM (130-400); Red Blood Count 3.79 MC/CUMM (3.8-5.5); Red Cell Distribution Width 18.8 % (9.3-17.3); White Blood Count 15.9 T/CUMM (4-12)
[2017-07-14 06:02] LABS: Osmolality,Calculated 271.4 MOS/KG (273-304); Potassium 3.8 MMOL/L (3.5-5.1)
[2017-07-14 06:24] LABS: Band Neutrophils 2 % (0-10); Hypochromasia 1+; Lymphocytes 3 % (20-55); Metamyelocytes 1 %; Segmented Neutrophils 89 % (50-85); Total Cells Counted 100
[2017-07-14 06:25] LABS: Microcytosis 1+; Platelet Estimate Adequate
[2017-07-14] MEDS: POTASSIUM CHLORIDE RIDER 20 MEQ in PREMIX 1 EACH IV PRN (07:12)
[2017-07-14] MEDS: ACIPHEX 20 MG PO SCH (08:08)
[2017-07-14] MEDS: ALPRAZolam 0.5 MG TABLET PO SCH ×3 (08:08→20:52)
[2017-07-14] MEDS: hydroCHLOROthiazide 12.5 MG CAPSULE PO SCH (08:08)
[2017-07-14] MEDS: ASPIRIN EC 81 MG TABLET PO SCH (08:09)
[2017-07-14] MEDS: CHLORHEXIDINE 0.12% ORAL RINSE 60 ML BOTTLE SWISH/SPIT SCH ×2 (08:11→20:53)
[2017-07-14] MEDS: POTASSIUM CHLORIDE RIDER 10 MEQ in PREMIX 1 EACH IV PRN (09:48)
[2017-07-14] MEDS: ACETAMINOPHEN 325 MG TABLET PO PRN (11:41)
[2017-07-14] MEDS: NITROGLYCERIN DRIP 50 MG/250 ML BOTTLE IV SCH (13:37)
[2017-07-14] MEDS: SODIUM CHLOR 0.45% KCL 20 MEQ 20 MEQ/1,000 ML BAG IV SCH (13:38)
[2017-07-14] MEDS: oxyCODONE/ACETAMINOPHEN 5-325 MG TABLET PO PRN (20:52)
[2017-07-15] MEDS: ACIPHEX 20 MG PO SCH (07:50)
[2017-07-15] MEDS: ASPIRIN EC 81 MG TABLET PO SCH (09:15)
[2017-07-15] MEDS: hydroCHLOROthiazide 12.5 MG CAPSULE PO SCH (09:15)
[2017-07-15] MEDS: ALPRAZolam 0.5 MG TABLET PO SCH ×3 (09:15→21:39)
[2017-07-15] MEDS: LISINOPRIL 10 MG TABLET PO SCH (09:15)
[2017-07-15] MEDS: METOPROLOL TARTRATE 25 MG TABLET PO SCH ×2 (09:15→21:38)
[2017-07-15] MEDS: CHLORHEXIDINE 0.12% ORAL RINSE 60 ML BOTTLE SWISH/SPIT SCH ×2 (09:30→21:42)
[2017-07-15] MEDS: NITROGLYCERIN DRIP 50 MG/250 ML BOTTLE IV SCH (12:30)
[2017-07-15] MEDS: SODIUM CHLOR 0.45% KCL 20 MEQ 20 MEQ/1,000 ML BAG IV SCH (12:30)
[2017-07-15] MEDS: oxyCODONE/ACETAMINOPHEN 5-325 MG TABLET PO PRN ×2 (14:10→21:39)
[2017-07-16 03:21] LABS: Basophils # 0.1 10*3/uL (0.0-0.2); Basophils % 0.5 % (0.0-0.8); Eosinophils # 0.1 10*3/uL (0.0-0.87); Eosinophils % 0.7 % (0.00-10.9); Hematocrit 32.6 VOL% (35.7-47.0); Hemoglobin 10.8 GM/DL (12.0-16.0); Immature Granulocytes % 6.4 %; Immature Granulocytes Absolute 0.74 #; Lymphocytes # 1.6 10*3/uL (1.4-4.0); Lymphocytes % 13.7 % (21.3-54.2); Mean Corpuscular HGB Conc 33.1 GM/DL (32-36); Mean Corpuscular Hemoglobin 29 PG (27-34); Mean Corpuscular Volume 88.1 FL (87-102); Monocytes # 1.3 10*3/uL (0.11-0.8); Monocytes % 11.6 % (1.7-12.7); Neutrophils # 7.7 10*3/uL (1.4-7.4); Neutrophils % 67.1 % (38.7-73.9); Platelet Count 193 T/CUMM (130-400); Red Cell Distribution Width 19.1 % (9.3-17.3); White Blood Count 11.5 T/CUMM (4-12)
[2017-07-16 03:43] LABS: Calcium 7.8 MG/DL (8.5-10.1); Magnesium 1.7 MG/DL (1.8-2.4); Osmolality,Calculated 270.2 MOS/KG (273-304)
[2017-07-16 05:42] LABS: Eosinophils 3 % (0-10); Lymphocytes 12 % (20-55); Metamyelocytes 1 %; Promyelocytes 1 %; Segmented Neutrophils 73 % (50-85); Total Cells Counted 100
[2017-07-16 05:43] LABS: Hypochromasia 1+; Microcytosis 1+
[2017-07-16] MEDS: ACIPHEX 20 MG PO SCH (08:56)
[2017-07-16] MEDS: hydroCHLOROthiazide 12.5 MG CAPSULE PO SCH (08:57)
[2017-07-16] MEDS: METOPROLOL TARTRATE 25 MG TABLET PO SCH (08:58)
[2017-07-16] MEDS: ASPIRIN EC 81 MG TABLET PO SCH (08:59)
[2017-07-16] MEDS: LISINOPRIL 10 MG TABLET PO SCH (08:59)
[2017-07-16] MEDS: ALPRAZolam 0.5 MG TABLET PO SCH ×2 (09:00→19:57)
[2017-07-16] MEDS: CHLORHEXIDINE 0.12% ORAL RINSE 60 ML BOTTLE SWISH/SPIT SCH ×2 (09:01→21:00)
[2017-07-16] MEDS ORDERED: FERROUS SULFATE 325 MG TABLET PO SCH (12:38)
[2017-07-16] MEDS ORDERED: POTASSIUM CHLORIDE 20 MEQ TABLET PO PRN (12:38)
[2017-07-16] MEDS ORDERED: ONDANSETRON 4 MG/2 ML VIAL IV PRN ×2 (12:38→15:18)
[2017-07-16] MEDS ORDERED: ALUMINUM/MAGNES/SIMETH MAX STR 30 ML UDCUP PO PRN (12:38)
[2017-07-16] MEDS ORDERED: DEXTROSE 50% 25 GM/50 ML VIAL IV PRN ×4 (12:38→15:18)
[2017-07-16] MEDS ORDERED: oxyCODONE/ACETAMINOPHEN 5-325 MG TABLET PO PRN (12:38)
[2017-07-16] MEDS ORDERED: MAGNESIUM SULF RIDER 2 GM in PREMIX 1 EACH IV PRN ×2 (12:38→15:18)
[2017-07-16] MEDS ORDERED: MAGNESIUM SULF RIDER 4 GM in PREMIX 1 EACH IV PRN ×2 (12:38→15:18)
[2017-07-16] MEDS ORDERED: ZALEPLON 5 MG CAPSULE PO PRN (12:38)
[2017-07-16] MEDS ORDERED: ACETAMINOPHEN 325 MG TABLET PO PRN (12:38)
[2017-07-16] MEDS ORDERED: MAGNESIUM HYDROXIDE SUSP 30 ML UDCUP PO PRN (12:38)
[2017-07-16] MEDS ORDERED: DOCUSATE SODIUM 100 MG CAPSULE PO SCH (12:38)
[2017-07-16] MEDS ORDERED: PANTOPRAZOLE 40 MG TABLET PO SCH (12:38)
[2017-07-16] MEDS ORDERED: GLUCAGON 1 MG VIAL IM PRN ×2 (12:38)
[2017-07-16] MEDS ORDERED: CHLORHEXIDINE 0.12% ORAL RINSE 60 ML BOTTLE SWISH/SPIT SCH (12:38)
[2017-07-16] MEDS ORDERED: PROPOFOL 1,000 MG/100 ML BOTTLE IV ONE (13:32)
[2017-07-16] MEDS ORDERED: ETOMIDATE 20 MG/10 ML VIAL IV ONE (13:33)
[2017-07-16] MEDS ORDERED: VANCOMYCIN 1,000 MG VIAL ONE (13:34)
[2017-07-16] MEDS ORDERED: CEFUROXIME 1,500 MG VIAL ONE (13:34)
[2017-07-16] MEDS ORDERED: VECURONIUM 10 MG VIAL IV ONE (13:35)
[2017-07-16] MEDS ORDERED: SODIUM CHLOR 0.45% KCL 20 MEQ 20 MEQ/1,000 ML BAG IV SCH (14:00)
[2017-07-16 14:51] LABS: Apearance,Urine CLEAR (Clear); Bacteria,Urine Occasional /HPF (Few); Bilirubin,Urine Negative (Negative); Blood, Urine Large mg/dL (Negative); Glucose,Urine (UA) Negative (Negative); Ketones,Urine Negative (Negative); Nitrite,Urine Negative (Negative); Protein,Urine 30 MG/DL; RBC,Urine <1 /HPF (0-4); Urine Color Yellow (Yellow); Urine Specific Gravity 1.005 (1.001-1.035); Urine Urobilinogen < 2.0 EU/DL (0.2-1.0); WBC,Urine 3 /HPF (0-6)
[2017-07-16] MEDS: SODIUM CHLORIDE 0.45% 1,000 ML IV SCH ×2 (15:00→17:11)
[2017-07-16] MEDS ORDERED: VANCOMYCIN INJ 1,000 MG in SODIUM CHLORIDE 0.9% 250 ML IV ONE (15:10)
[2017-07-16] MEDS ORDERED: MIDAZOLAM 2 MG/2 ML VIAL IV PRN (15:18)
[2017-07-16] MEDS ORDERED: LACTATED RINGERS 250 ML IV PRN (15:18)
[2017-07-16] MEDS ORDERED: INSULIN REGULAR 100 UNIT/ML IV PRN (15:18)
[2017-07-16] MEDS ORDERED: NITROPRUSSIDE 100 MG in DEXTROSE 5% 250 ML IV PRN (15:18)
[2017-07-16] MEDS ORDERED: VECURONIUM 10 MG VIAL IV PRN ×2 (15:18)
[2017-07-16] MEDS ORDERED: ACETAMINOPHEN 650 MG SUPP RECTAL PRN (15:18)
[2017-07-16] MEDS ORDERED: INSULIN REGULAR 100 UNIT/ML IV ONE (15:18)
[2017-07-16] MEDS ORDERED: MORPHINE 2 MG/1 ML SYRINGE IV PRN (15:18)
[2017-07-16] MEDS ORDERED: MIDAZOLAM 10 MG/2 ML VIAL IV PRN (15:18)
[2017-07-16] MEDS ORDERED: CALCIUM CHLORIDE 1,000 MG/10 ML SYRINGE IV PRN (15:18)
[2017-07-16] MEDS ORDERED: INSULIN REGULAR DRIP 100 ML IV SCH (15:18)
[2017-07-16] MEDS ORDERED: POTASSIUM CHLORIDE RIDER 10 MEQ in PREMIX 1 EACH IV PRN (15:18)
[2017-07-16] MEDS ORDERED: PHENYLEPHRINE DRIP 40 MG/250 ML PREMIX IV PRN (15:18)
[2017-07-16 15:22] LABS: Basophils # 0.1 10*3/uL (0.0-0.2); Basophils % 0.4 % (0.0-0.8); Eosinophils % 0.1 % (0.00-10.9); Hemoglobin 11.8 GM/DL (12.0-16.0); Immature Granulocytes % 7.1 %; Immature Granulocytes Absolute 1.66 #; Lymphocytes # 1.3 10*3/uL (1.4-4.0); Lymphocytes % 5.5 % (21.3-54.2); Mean Corpuscular HGB Conc 33.7 GM/DL (32-36); Mean Corpuscular Hemoglobin 30 PG (27-34); Mean Corpuscular Volume 87.7 FL (87-102); Mean Platelet Volume 9.6 FL (9.6-12.0); Monocytes # 1.4 10*3/uL (0.11-0.8); Neutrophils % 80.9 % (38.7-73.9); Platelet Count 172 T/CUMM (130-400); Red Blood Count 3.99 MC/CUMM (3.8-5.5); Red Cell Distribution Width 18.1 % (9.3-17.3); White Blood Count 23.5 T/CUMM (4-12)
[2017-07-16 15:23] LABS: ABG Base Excess -0.7 MMOL/L (-2.5-2.5); ABG HCO3 23.8 MMOL/L (20-26); ABG PH 7.445 (7.35-7.45); ABG TCO2 20.1 MMOL/L (23-27); Glucose Heart Surgery 119 MG/DL (74-106); Hematocrit Heart Surgery 35.6 PERCENT (37-47); Hemoglobin Heart Surgery 11.5 G/DL (12.0-16.0); Potassium Heart/CVR 3.4 MMOL/L (3.5-5.1)
[2017-07-16] MEDS ORDERED: SODIUM CHLORIDE 0.9% 1,000 ML IV ONE (15:28)
[2017-07-16] MEDS ORDERED: SODIUM CHLORIDE 0.9% 250 ML IV ONE (15:28)
[2017-07-16] MEDS ORDERED: SEVOFLURANE 1 UNIT/15 MINUTE INH ONE (15:28)
[2017-07-16] MEDS ORDERED: fentaNYL 100 MCG/2 ML VIAL ONE (15:28)
[2017-07-16] MEDS: MORPHINE 10 MG/1 ML VIAL IV PRN ×2 (15:39→22:18)
[2017-07-16 15:50] LABS: Albumin 1.8 G/DL (3.4-5.0); Bilirubin,Total 0.5 MG/DL (0.2-1.0); Calcium 7.3 MG/DL (8.5-10.1); Magnesium 1.9 MG/DL (1.8-2.4); Osmolality,Calculated 273.1 MOS/KG (273-304); Potassium 3.7 MMOL/L (3.5-5.1); Total Protein 4.4 G/DL (6.4-8.3)
[2017-07-16 15:51] LABS: CKMB % 2.6 %
[2017-07-16 15:54] LABS: Troponin I Only 2.1 NG/ML (0.00-0.045)
[2017-07-16] MEDS ORDERED: AMIODARONE INJ 150 MG in DEXTROSE 5% 100 ML IV ONE (16:04)
[2017-07-16] MEDS ORDERED: DILTIAZEM 50 MG/10 ML VIAL IV ONE (16:06)
[2017-07-16] MEDS ORDERED: AMIODARONE 150 MG/3 ML VIAL ONE (16:08)
[2017-07-16] MEDS ORDERED: DILTIAZEM 100 MG VIAL.ADD IV ONE (16:08)
[2017-07-16] MEDS ORDERED: SODIUM CHLORIDE 0.9% 100 ML IV ONE (16:09)
[2017-07-16] MEDS: DILTIAZEM INJ 100 MG in SODIUM CHLORIDE 0.9% 100 ML IV SCH (16:22)
[2017-07-16 16:53] LABS: INR 1.2; PT Patient Result 12.3 SECS; Partial Thromboplastin Time 30.6 SECS (0-40)
[2017-07-16] MEDS ORDERED: AMIODARONE INJ 450 MG in DEXTROSE 5% 241 ML IV SCH (17:00)
[2017-07-16 17:35] LABS: ABG HCO3 22.8 MMOL/L (20-26); ABG Oxygen Saturation 99.3 % (95-100); ABG PCO2 41.6 MM HG (35-48); ABG PH 7.359 (7.35-7.45); ABG TCO2 20.7 MMOL/L (23-27); Glucose Heart Surgery 133 MG/DL (74-106); Hematocrit Heart Surgery 38.9 PERCENT (37-47); Hemoglobin Heart Surgery 12.6 G/DL (12.0-16.0); Potassium Heart/CVR 3.7 MMOL/L (3.5-5.1)
[2017-07-16] MEDS ORDERED: FUROSEMIDE 40 MG/4 ML VIAL IV ONE (17:40)
[2017-07-16] MEDS ORDERED: FUROSEMIDE 40 MG/4 ML VIAL ONE (17:43)
[2017-07-16] MEDS: ALBUMIN 5% 12.5 GM in PREMIX 1 EACH IV PRN (17:45)
[2017-07-16 18:36] LABS: Lymphocytes 7 % (20-55); Segmented Neutrophils 90 % (50-85); Total Cells Counted 100
[2017-07-16 18:37] LABS: Platelet Estimate Normal
[2017-07-16] MEDS: NITROGLYCERIN DRIP 50 MG/250 ML BOTTLE IV SCH (19:58)
[2017-07-16 20:15] LABS: ABG Base Excess -0.2 MMOL/L (-2.5-2.5); ABG HCO3 24.3 MMOL/L (20-26); ABG Oxygen Saturation 99.2 % (95-100); ABG PCO2 38.5 MM HG (35-48); ABG PH 7.408 (7.35-7.45); ABG TCO2 21.3 MMOL/L (23-27); Glucose Heart Surgery 144 MG/DL (74-106); Hematocrit Heart Surgery 38.8 PERCENT (37-47); Hemoglobin Heart Surgery 12.6 G/DL (12.0-16.0); Potassium Heart/CVR 3.6 MMOL/L (3.5-5.1)
[2017-07-16] MEDS: POTASSIUM CHLORIDE RIDER 20 MEQ in PREMIX 1 EACH IV PRN (20:59)
[2017-07-16] MEDS: CEFUROXIME INJ 1,500 MG in SODIUM CHLORIDE 0.9% 100 ML IV SCH (22:18)
[2017-07-16 23:09] LABS: ABG Base Excess -0.5 MMOL/L (-2.5-2.5); ABG HCO3 23.7 MMOL/L (20-26); ABG Oxygen Saturation 97.7 % (95-100); ABG PCO2 37.4 MM HG (35-48); ABG PO2 97.7 MM HG (80-95); ABG TCO2 24.9 MMOL/L (23-27); Glucose Heart Surgery 126 MG/DL (74-106); Hemoglobin Heart Surgery 12.8 G/DL (12.0-16.0); Potassium Heart/CVR 4.2 MMOL/L (3.5-5.1)
[2017-07-16 23:36] LABS: CKMB % 2.7 %
[2017-07-16 23:41] LABS: Troponin I Only 1.71 NG/ML (0.00-0.045)
[2017-07-17] MEDS ORDERED: AMIODARONE INJ 450 MG in DEXTROSE 5% 241 ML IV SCH ×2
[2017-07-17] MEDS: ACETAMINOPHEN 325 MG TABLET PO PRN ×4 (00:15→21:25)
[2017-07-17] MEDS: ALBUMIN 5% 12.5 GM in PREMIX 1 EACH IV PRN (03:24)
[2017-07-17 04:03] LABS: ABG Base Excess -1.6 MMOL/L (-2.5-2.5); ABG HCO3 23.1 MMOL/L (20-26); ABG Oxygen Saturation 98.7 % (95-100); ABG PCO2 36.7 MM HG (35-48); ABG PH 7.401 (7.35-7.45); ABG TCO2 20.3 MMOL/L (23-27); Glucose Heart Surgery 110 MG/DL (74-106); Hematocrit Heart Surgery 35.3 PERCENT (37-47); Hemoglobin Heart Surgery 11.5 G/DL (12.0-16.0); Potassium Heart/CVR 4.1 MMOL/L (3.5-5.1)
[2017-07-17 04:14] LABS: Basophils # 0.1 10*3/uL (0.0-0.2); Basophils % 0.5 % (0.0-0.8); Eosinophils % 0.1 % (0.00-10.9); Hematocrit 33.9 VOL% (35.7-47.0); Hemoglobin 11.5 GM/DL (12.0-16.0); Immature Granulocytes % 5.4 %; Immature Granulocytes Absolute 1.06 #; Lymphocytes # 1.6 10*3/uL (1.4-4.0); Lymphocytes % 7.9 % (21.3-54.2); Mean Corpuscular HGB Conc 33.9 GM/DL (32-36); Mean Corpuscular Hemoglobin 30 PG (27-34); Mean Corpuscular Volume 88.1 FL (87-102); Mean Platelet Volume 10.3 FL (9.6-12.0); Monocytes % 9.9 % (1.7-12.7); Neutrophils # 15.1 10*3/uL (1.4-7.4); Neutrophils % 76.2 % (38.7-73.9); Platelet Count 215 T/CUMM (130-400); Red Blood Count 3.85 MC/CUMM (3.8-5.5); Red Cell Distribution Width 18.2 % (9.3-17.3); White Blood Count 19.8 T/CUMM (4-12)
[2017-07-17 04:25] LABS: Albumin 2.6 G/DL (3.4-5.0); Bilirubin,Direct 0.22 MG/DL (0.0-0.20); Bilirubin,Total 0.6 MG/DL (0.2-1.0); Calcium 7.3 MG/DL (8.5-10.1); Magnesium 1.6 MG/DL (1.8-2.4); Osmolality,Calculated 268.4 MOS/KG (273-304); Potassium 4.2 MMOL/L (3.5-5.1); Total Protein 5.3 G/DL (6.4-8.3)
[2017-07-17 05:06] LABS: Band Neutrophils 2 % (0-10); Lymphocytes 10 % (20-55); Metamyelocytes 1 %; Myelocytes 2 %; Platelet Estimate Normal; Segmented Neutrophils 79 % (50-85); Total Cells Counted 100
[2017-07-17] MEDS ORDERED: FUROSEMIDE 40 MG/4 ML VIAL IV ONE ×2 (05:08→06:00)
[2017-07-17] MEDS: POTASSIUM CHLORIDE RIDER 20 MEQ in PREMIX 1 EACH IV PRN (07:27)
[2017-07-17] MEDS ORDERED: ALPRAZolam 0.5 MG TABLET PO SCH (09:00)
[2017-07-17] MEDS: CHLORHEXIDINE 0.12% ORAL RINSE 60 ML BOTTLE SWISH/SPIT SCH ×2 (09:16→21:30)
[2017-07-17] MEDS: ALPRAZolam 0.5 MG TABLET PO SCH ×4 (09:16→22:34)
[2017-07-17] MEDS ORDERED: ZALEPLON 5 MG CAPSULE PO PRN (09:36)
[2017-07-17] MEDS: CEFUROXIME INJ 1,500 MG in SODIUM CHLORIDE 0.9% 100 ML IV SCH ×2 (12:25→23:50)
[2017-07-17] MEDS ORDERED: hydroCHLOROthiazide 12.5 MG CAPSULE PO ONE (12:43)
[2017-07-17] MEDS ORDERED: AMIODARONE 200 MG TABLET PO ONE (12:43)
[2017-07-17] MEDS ORDERED: LISINOPRIL 10 MG TABLET PO ONE (12:45)
[2017-07-17] MEDS ORDERED: PROPOFOL 200 MG/20 ML VIAL IV ONE (13:37)
[2017-07-17] MEDS ORDERED: PHENYLEPHRINE 1 MG/10 ML SYRINGE IV ONE (13:37)
[2017-07-17] MEDS ORDERED: VECURONIUM 10 MG VIAL IV ONE (13:37)
[2017-07-17 16:04] LABS: CKMB % 2.1 %
[2017-07-17 16:08] LABS: Troponin I Only 0.818 NG/ML (0.00-0.045)
[2017-07-17] MEDS: SODIUM CHLORIDE 0.45% 1,000 ML IV SCH ×3 (16:09→22:46)
[2017-07-17] MEDS: DILTIAZEM INJ 100 MG in SODIUM CHLORIDE 0.9% 100 ML IV SCH (17:34)
[2017-07-17] MEDS: METOPROLOL TARTRATE 25 MG TABLET PO SCH (21:25)
[2017-07-18] MEDS: ACETAMINOPHEN 325 MG TABLET PO PRN ×2 (03:55→20:20)
[2017-07-18 07:34] LABS: Basophils # 0.1 10*3/uL (0.0-0.2); Basophils % 0.3 % (0.0-0.8); Eosinophils % 0.2 % (0.00-10.9); Hematocrit 34.7 VOL% (35.7-47.0); Hemoglobin 11.7 GM/DL (12.0-16.0); Immature Granulocytes Absolute 0.72 #; Lymphocytes # 1.8 10*3/uL (1.4-4.0); Lymphocytes % 9.8 % (21.3-54.2); Mean Corpuscular HGB Conc 33.7 GM/DL (32-36); Mean Corpuscular Hemoglobin 30 PG (27-34); Mean Corpuscular Volume 89.4 FL (87-102); Mean Platelet Volume 10.3 FL (9.6-12.0); Monocytes # 2.3 10*3/uL (0.11-0.8); Monocytes % 12.7 % (1.7-12.7); Platelet Count 226 T/CUMM (130-400); Red Blood Count 3.88 MC/CUMM (3.8-5.5); Red Cell Distribution Width 18.9 % (9.3-17.3); White Blood Count 17.8 T/CUMM (4-12)
[2017-07-18 08:17] LABS: Band Neutrophils 2 % (0-10); Giant Platelets Few; Hypochromasia 1+; Lymphocytes 6 % (20-55); Platelet Estimate Adequate; Segmented Neutrophils 83 % (50-85); Total Cells Counted 100
[2017-07-18] MEDS: hydroCHLOROthiazide 12.5 MG CAPSULE PO SCH (09:25)
[2017-07-18] MEDS: AMIODARONE 200 MG TABLET PO SCH (09:25)
[2017-07-18] MEDS: ALPRAZolam 0.5 MG TABLET PO SCH ×3 (09:25→20:20)
[2017-07-18] MEDS: LISINOPRIL 10 MG TABLET PO SCH (09:25)
[2017-07-18] MEDS: METOPROLOL TARTRATE 25 MG TABLET PO SCH ×2 (09:25→20:20)
[2017-07-18] MEDS: CHLORHEXIDINE 0.12% ORAL RINSE 60 ML BOTTLE SWISH/SPIT SCH ×2 (09:26→20:21)
[2017-07-18] MEDS: PANTOPRAZOLE 40 MG TABLET PO SCH (09:26)
[2017-07-18] MEDS: FUROSEMIDE 40 MG/4 ML VIAL IV SCH (10:35)
[2017-07-18] MEDS: oxyCODONE/ACETAMINOPHEN 5-325 MG TABLET PO PRN (11:08)
[2017-07-18] MEDS: CEFEPIME 1,000 MG in SODIUM CHLORIDE 0.9% 50 ML IV SCH ×2 (11:09→22:44)
[2017-07-18] MEDS: SODIUM CHLORIDE 0.45% 1,000 ML IV SCH ×2 (15:44→15:45)
[2017-07-18] MEDS: DILTIAZEM INJ 100 MG in SODIUM CHLORIDE 0.9% 100 ML IV SCH (15:46)
[2017-07-19 04:27] LABS: Basophils # 0.1 10*3/uL (0.0-0.2); Basophils % 0.6 % (0.0-0.8); Eosinophils % 0.3 % (0.00-10.9); Hemoglobin 10.6 GM/DL (12.0-16.0); Immature Granulocytes % 5.5 %; Immature Granulocytes Absolute 0.68 #; Lymphocytes # 1.4 10*3/uL (1.4-4.0); Lymphocytes % 11.7 % (21.3-54.2); Mean Corpuscular HGB Conc 33.1 GM/DL (32-36); Mean Corpuscular Hemoglobin 30 PG (27-34); Mean Corpuscular Volume 89.1 FL (87-102); Mean Platelet Volume 10.3 FL (9.6-12.0); Monocytes # 1.2 10*3/uL (0.11-0.8); Neutrophils # 8.8 10*3/uL (1.4-7.4); Neutrophils % 71.9 % (38.7-73.9); Platelet Count 224 T/CUMM (130-400); Red Blood Count 3.59 MC/CUMM (3.8-5.5); Red Cell Distribution Width 18.4 % (9.3-17.3); White Blood Count 12.3 T/CUMM (4-12)
[2017-07-19 05:05] LABS: Calcium 7.8 MG/DL (8.5-10.1); Osmolality,Calculated 268.4 MOS/KG (273-304); Potassium 3.8 MMOL/L (3.5-5.1)
[2017-07-19 06:03] LABS: Band Neutrophils 1 % (0-10); Eosinophils 1 % (0-10); Lymphocytes 9 % (20-55); Segmented Neutrophils 80 % (50-85); Total Cells Counted 100
[2017-07-19 06:04] LABS: Giant Platelets Few; Hypochromasia 1+; Ovalocytes Slight; Platelet Estimate Adequate
[2017-07-19] MEDS: ALPRAZolam 0.5 MG TABLET PO SCH ×2 (09:11→15:42)
[2017-07-19] MEDS: ACETAMINOPHEN 325 MG TABLET PO PRN ×2 (09:11→20:30)
[2017-07-19] MEDS: hydroCHLOROthiazide 12.5 MG CAPSULE PO SCH (09:11)
[2017-07-19] MEDS: PANTOPRAZOLE 40 MG TABLET PO SCH (09:12)
[2017-07-19] MEDS: FUROSEMIDE 40 MG/4 ML VIAL IV SCH (09:12)
[2017-07-19] MEDS: LISINOPRIL 10 MG TABLET PO SCH (09:12)
[2017-07-19] MEDS: AMIODARONE 200 MG TABLET PO SCH (09:12)
[2017-07-19] MEDS: METOPROLOL TARTRATE 25 MG TABLET PO SCH ×2 (09:12→20:30)
[2017-07-19] MEDS: CHLORHEXIDINE 0.12% ORAL RINSE 60 ML BOTTLE SWISH/SPIT SCH ×2 (09:13→20:27)
[2017-07-19] MEDS: CEFEPIME 1,000 MG in SODIUM CHLORIDE 0.9% 50 ML IV SCH ×2 (09:31→22:39)
[2017-07-19] MEDS: SODIUM CHLORIDE 0.45% 1,000 ML IV SCH ×2 (15:40)
[2017-07-19] MEDS: DILTIAZEM INJ 100 MG in SODIUM CHLORIDE 0.9% 100 ML IV SCH (15:40)
[2017-07-19] MEDS: ALPRAZolam 0.5 MG TABLET PO PRN (20:30)
[2017-07-19] MEDS: oxyCODONE/ACETAMINOPHEN 5-325 MG TABLET PO PRN (22:39)
[2017-07-20 03:52] LABS: Basophils # 0.1 10*3/uL (0.0-0.2); Basophils % 0.9 % (0.0-0.8); Eosinophils # 0.1 10*3/uL (0.0-0.87); Eosinophils % 0.5 % (0.00-10.9); Hematocrit 32.5 VOL% (35.7-47.0); Hemoglobin 10.9 GM/DL (12.0-16.0); Immature Granulocytes % 5.2 %; Immature Granulocytes Absolute 0.53 #; Lymphocytes # 1.7 10*3/uL (1.4-4.0); Lymphocytes % 16.7 % (21.3-54.2); Mean Corpuscular HGB Conc 33.5 GM/DL (32-36); Mean Corpuscular Hemoglobin 30 PG (27-34); Mean Corpuscular Volume 89.5 FL (87-102); Mean Platelet Volume 10.5 FL (9.6-12.0); Monocytes # 1.1 10*3/uL (0.11-0.8); Monocytes % 10.8 % (1.7-12.7); Neutrophils # 6.7 10*3/uL (1.4-7.4); Neutrophils % 65.9 % (38.7-73.9); Platelet Count 237 T/CUMM (130-400); Red Blood Count 3.63 MC/CUMM (3.8-5.5); Red Cell Distribution Width 18.6 % (9.3-17.3); White Blood Count 10.2 T/CUMM (4-12)
[2017-07-20 04:03] LABS: Calcium 7.6 MG/DL (8.5-10.1); Osmolality,Calculated 270.2 MOS/KG (273-304); Potassium 3.5 MMOL/L (3.5-5.1)
[2017-07-20 04:25] LABS: Band Neutrophils 6 % (0-10); Lymphocytes 8 % (20-55); Myelocytes 6 %; Segmented Neutrophils 80 % (50-85); Total Cells Counted 100
[2017-07-20 04:26] LABS: Anisocytosis 1+; Ovalocytes 1+; Platelet Estimate Adequate
[2017-07-20] MEDS ORDERED: MAGNESIUM HYDROXIDE SUSP 30 ML UDCUP PO PRN (07:41)
[2017-07-20] MEDS ORDERED: MAGNESIUM SULF RIDER 2 GM in PREMIX 1 EACH IV PRN (07:41)
[2017-07-20] MEDS ORDERED: ONDANSETRON 4 MG/2 ML VIAL IV PRN (07:41)
[2017-07-20] MEDS ORDERED: POTASSIUM CHLORIDE 20 MEQ TABLET PO PRN (07:41)
[2017-07-20] MEDS ORDERED: MAGNESIUM SULF RIDER 4 GM in PREMIX 1 EACH IV PRN (07:41)
[2017-07-20] MEDS ORDERED: GLUCAGON 1 MG VIAL IM PRN ×2 (07:41)
[2017-07-20] MEDS ORDERED: DEXTROSE 50% 25 GM/50 ML VIAL IV PRN ×2 (07:41)
[2017-07-20] MEDS: FERROUS SULFATE 325 MG TABLET PO SCH (08:33)
[2017-07-20] MEDS: DOCUSATE SODIUM 100 MG CAPSULE PO SCH (08:33)
[2017-07-20] MEDS: PANTOPRAZOLE 40 MG TABLET PO SCH (08:33)
[2017-07-20] MEDS: hydroCHLOROthiazide 12.5 MG CAPSULE PO SCH (08:33)
[2017-07-20] MEDS: ASPIRIN EC 325 MG TABLET PO SCH (08:34)
[2017-07-20] MEDS: CHLORHEXIDINE 0.12% ORAL RINSE 60 ML BOTTLE SWISH/SPIT SCH ×2 (08:34→22:45)
[2017-07-20] MEDS: METOPROLOL TARTRATE 25 MG TABLET PO SCH ×2 (08:34→21:36)
[2017-07-20] MEDS: LISINOPRIL 10 MG TABLET PO SCH (08:34)
[2017-07-20] MEDS: AMIODARONE 200 MG TABLET PO SCH (08:34)
[2017-07-20] MEDS: SODIUM CHLOR 0.45% KCL 20 MEQ 20 MEQ/1,000 ML BAG IV SCH (18:46)
[2017-07-20] MEDS: ALPRAZolam 0.5 MG TABLET PO PRN (21:36)
[2017-07-21 05:20] LABS: Basophils # 0.1 10*3/uL (0.0-0.2); Basophils % 0.7 % (0.0-0.8); Eosinophils % 0.3 % (0.00-10.9); Hematocrit 32.3 VOL% (35.7-47.0); Hemoglobin 10.9 GM/DL (12.0-16.0); Immature Granulocytes % 4.1 %; Lymphocytes # 1.7 10*3/uL (1.4-4.0); Mean Corpuscular HGB Conc 33.7 GM/DL (32-36); Mean Corpuscular Hemoglobin 30 PG (27-34); Mean Corpuscular Volume 88.7 FL (87-102); Mean Platelet Volume 10.6 FL (9.6-12.0); Monocytes # 1.4 10*3/uL (0.11-0.8); Monocytes % 11.4 % (1.7-12.7); Neutrophils # 8.4 10*3/uL (1.4-7.4); Neutrophils % 69.5 % (38.7-73.9); Platelet Count 241 T/CUMM (130-400); Red Blood Count 3.64 MC/CUMM (3.8-5.5); Red Cell Distribution Width 18.4 % (9.3-17.3); White Blood Count 12.1 T/CUMM (4-12)
[2017-07-21 05:52] LABS: Albumin 1.7 G/DL (3.4-5.0); Bilirubin,Direct 0.14 MG/DL (0.0-0.20); Bilirubin,Indirect 0.8 MG/DL (0.0-1.0); Bilirubin,Total 0.9 MG/DL (0.2-1.0); CKMB % 3.2 %; Calcium 7.8 MG/DL (8.5-10.1); Magnesium 1.7 MG/DL (1.8-2.4); Osmolality,Calculated 269.2 MOS/KG (273-304); Potassium 3.4 MMOL/L (3.5-5.1); Total Protein 4.7 G/DL (6.4-8.3)
[2017-07-21 05:58] LABS: Troponin I Only 0.793 NG/ML (0.00-0.045)
[2017-07-21] MEDS ORDERED: FUROSEMIDE 40 MG/4 ML VIAL IV ONE (06:00)
[2017-07-21] MEDS: ASPIRIN EC 325 MG TABLET PO SCH (09:53)
[2017-07-21] MEDS: hydroCHLOROthiazide 12.5 MG CAPSULE PO SCH (09:53)
[2017-07-21] MEDS: DOCUSATE SODIUM 100 MG CAPSULE PO SCH (09:54)
[2017-07-21] MEDS: CHLORHEXIDINE 0.12% ORAL RINSE 60 ML BOTTLE SWISH/SPIT SCH ×2 (09:54→21:54)
[2017-07-21] MEDS: AMIODARONE 200 MG TABLET PO SCH (09:54)
[2017-07-21] MEDS: METOPROLOL TARTRATE 25 MG TABLET PO SCH ×2 (09:54→21:52)
[2017-07-21] MEDS: FERROUS SULFATE 325 MG TABLET PO SCH (09:54)
[2017-07-21] MEDS: PANTOPRAZOLE 40 MG TABLET PO SCH (09:54)
[2017-07-21] MEDS: SODIUM CHLOR 0.45% KCL 20 MEQ 20 MEQ/1,000 ML BAG IV SCH (09:57)
[2017-07-21] MEDS: ACETAMINOPHEN 325 MG TABLET PO PRN (16:14)
[2017-07-21] MEDS: ALPRAZolam 0.5 MG TABLET PO PRN (18:03)
[2017-07-21] MEDS: ALUMINUM/MAGNES/SIMETH MAX STR 30 ML UDCUP PO PRN (18:03)
[2017-07-21] MEDS: ZALEPLON 5 MG CAPSULE PO PRN (21:52)
[2017-07-21] MEDS: oxyCODONE/ACETAMINOPHEN 5-325 MG TABLET PO PRN (21:52)
[2017-07-22 06:10] LABS: Basophils # 0.1 10*3/uL (0.0-0.2); Basophils % 0.5 % (0.0-0.8); Eosinophils # 0.1 10*3/uL (0.0-0.87); Eosinophils % 0.5 % (0.00-10.9); Hematocrit 31.8 VOL% (35.7-47.0); Hemoglobin 10.6 GM/DL (12.0-16.0); Immature Granulocytes % 2.6 %; Immature Granulocytes Absolute 0.34 #; Lymphocytes # 1.7 10*3/uL (1.4-4.0); Lymphocytes % 12.9 % (21.3-54.2); Mean Corpuscular HGB Conc 33.3 GM/DL (32-36); Mean Corpuscular Hemoglobin 30 PG (27-34); Mean Corpuscular Volume 88.6 FL (87-102); Mean Platelet Volume 10.5 FL (9.6-12.0); Monocytes # 1.5 10*3/uL (0.11-0.8); Monocytes % 11.2 % (1.7-12.7); Neutrophils # 9.4 10*3/uL (1.4-7.4); Neutrophils % 72.3 % (38.7-73.9); Platelet Count 239 T/CUMM (130-400); Red Blood Count 3.59 MC/CUMM (3.8-5.5); Red Cell Distribution Width 18.6 % (9.3-17.3)
[2017-07-22 06:40] LABS: Albumin 1.9 G/DL (3.4-5.0); Bilirubin,Direct 0.14 MG/DL (0.0-0.20); Bilirubin,Indirect 0.4 MG/DL (0.0-1.0); Bilirubin,Total 0.5 MG/DL (0.2-1.0); CKMB % 3.4 %; Calcium 7.9 MG/DL (8.5-10.1); Magnesium 1.7 MG/DL (1.8-2.4); Osmolality,Calculated 269.4 MOS/KG (273-304); Potassium 3.6 MMOL/L (3.5-5.1); Total Protein 5.1 G/DL (6.4-8.3)
[2017-07-22 06:41] LABS: Troponin I Only 0.564 NG/ML (0.00-0.045)
[2017-07-22] MEDS: ASPIRIN EC 325 MG TABLET PO SCH (08:57)
[2017-07-22] MEDS: METOPROLOL TARTRATE 25 MG TABLET PO SCH ×2 (08:57→22:24)
[2017-07-22] MEDS: FERROUS SULFATE 325 MG TABLET PO SCH (08:57)
[2017-07-22] MEDS: hydroCHLOROthiazide 12.5 MG CAPSULE PO SCH (08:57)
[2017-07-22] MEDS: PANTOPRAZOLE 40 MG TABLET PO SCH (08:57)
[2017-07-22] MEDS: AMIODARONE 200 MG TABLET PO SCH (08:57)
[2017-07-22] MEDS: CHLORHEXIDINE 0.12% ORAL RINSE 60 ML BOTTLE SWISH/SPIT SCH ×2 (08:58→22:24)
[2017-07-22] MEDS: DOCUSATE SODIUM 100 MG CAPSULE PO SCH (08:58)
[2017-07-22] MEDS: ALPRAZolam 0.5 MG TABLET PO PRN (11:54)
[2017-07-22] MEDS: ACETAMINOPHEN 325 MG TABLET PO PRN (11:54)
[2017-07-23] MEDS: ACETAMINOPHEN 325 MG TABLET PO PRN ×3 (02:03→21:18)
[2017-07-23] MEDS: ASPIRIN EC 325 MG TABLET PO SCH (09:05)
[2017-07-23] MEDS: hydroCHLOROthiazide 12.5 MG CAPSULE PO SCH (09:05)
[2017-07-23] MEDS: CHLORHEXIDINE 0.12% ORAL RINSE 60 ML BOTTLE SWISH/SPIT SCH ×2 (09:05→21:19)
[2017-07-23] MEDS: AMIODARONE 200 MG TABLET PO SCH (09:05)
[2017-07-23] MEDS: METOPROLOL TARTRATE 25 MG TABLET PO SCH ×2 (09:05→21:19)
[2017-07-23] MEDS: ALPRAZolam 0.5 MG TABLET PO PRN ×2 (09:05→21:33)
[2017-07-23] MEDS: FERROUS SULFATE 325 MG TABLET PO SCH (09:05)
[2017-07-23] MEDS: PANTOPRAZOLE 40 MG TABLET PO SCH (09:05)
[2017-07-23] MEDS: DOCUSATE SODIUM 100 MG CAPSULE PO SCH (09:05)
[2017-07-23] MEDS: ZALEPLON 5 MG CAPSULE PO PRN (21:18)
[2017-07-23] MEDS ORDERED: AMIODARONE INJ 50 MG in DEXTROSE 5% 100 ML IV ONE (21:33)
[2017-07-23] MEDS ORDERED: DILTIAZEM 100 MG VIAL.ADD IV ONE ×2 (21:36→21:41)
[2017-07-23] MEDS ORDERED: AMIODARONE 150 MG/3 ML VIAL ONE (21:38)
[2017-07-23] MEDS ORDERED: DILTIAZEM 50 MG/10 ML VIAL IV ONE (21:40)
[2017-07-23] MEDS ORDERED: SODIUM CHLORIDE 0.9% IV SCH (22:00)
[2017-07-23] MEDS ORDERED: DILTIAZEM INJ 100 MG in SODIUM CHLORIDE 0.9% 100 ML IV SCH (22:00)
[2017-07-23] MEDS ORDERED: DILTIAZEM IV SCH (22:00)
[2017-07-24 05:30] LABS: Basophils # 0.1 10*3/uL (0.0-0.2); Basophils % 0.4 % (0.0-0.8); Eosinophils % 0.2 % (0.00-10.9); Hematocrit 33.9 VOL% (35.7-47.0); Hemoglobin 11.5 GM/DL (12.0-16.0); Immature Granulocytes % 2.1 %; Lymphocytes # 1.9 10*3/uL (1.4-4.0); Lymphocytes % 13.8 % (21.3-54.2); Mean Corpuscular HGB Conc 33.9 GM/DL (32-36); Mean Corpuscular Hemoglobin 30 PG (27-34); Mean Corpuscular Volume 87.8 FL (87-102); Mean Platelet Volume 10.3 FL (9.6-12.0); Monocytes # 1.4 10*3/uL (0.11-0.8); Neutrophils # 10.3 10*3/uL (1.4-7.4); Neutrophils % 73.5 % (38.7-73.9); Platelet Count 241 T/CUMM (130-400); Red Blood Count 3.86 MC/CUMM (3.8-5.5); Red Cell Distribution Width 18.9 % (9.3-17.3)
[2017-07-24 06:08] LABS: Albumin 2.1 G/DL (3.4-5.0); Bilirubin,Direct 0.17 MG/DL (0.0-0.20); Bilirubin,Indirect 0.5 MG/DL (0.0-1.0); Bilirubin,Total 0.7 MG/DL (0.2-1.0); Calcium 8.1 MG/DL (8.5-10.1); Magnesium 1.7 MG/DL (1.8-2.4); Osmolality,Calculated 261.8 MOS/KG (273-304); Potassium 3.5 MMOL/L (3.5-5.1); Total Protein 5.7 G/DL (6.4-8.3)
[2017-07-24 06:17] LABS: Troponin I Only 0.39 NG/ML (0.00-0.045)
[2017-07-24] MEDS: DILTIAZEM 30 MG TABLET PO SCH ×3 (11:06→21:34)
[2017-07-24] MEDS: hydroCHLOROthiazide 12.5 MG CAPSULE PO SCH (11:06)
[2017-07-24] MEDS: PANTOPRAZOLE 40 MG TABLET PO SCH (11:07)
[2017-07-24] MEDS: METOPROLOL TARTRATE 25 MG TABLET PO SCH ×2 (11:07→21:34)
[2017-07-24] MEDS: AMIODARONE 200 MG TABLET PO SCH (11:07)
[2017-07-24] MEDS: DOCUSATE SODIUM 100 MG CAPSULE PO SCH (11:07)
[2017-07-24] MEDS: ALPRAZolam 0.5 MG TABLET PO PRN ×2 (11:07→21:34)
[2017-07-24] MEDS: ASPIRIN EC 325 MG TABLET PO SCH (11:07)
[2017-07-24] MEDS: CHLORHEXIDINE 0.12% ORAL RINSE 60 ML BOTTLE SWISH/SPIT SCH ×2 (11:08→21:35)
[2017-07-24] MEDS: FERROUS SULFATE 325 MG TABLET PO SCH (11:08)
[2017-07-24] MEDS: oxyCODONE/ACETAMINOPHEN 5-325 MG TABLET PO PRN ×3 (12:59→21:35)
[2017-07-24] MEDS: ZINC OXIDE PASTE 113 GM TUBE TOP SCH ×2 (16:41→21:36)
[2017-07-24] MEDS: ZALEPLON 5 MG CAPSULE PO PRN (21:34)
[2017-07-24] MEDS: ZINC OXIDE PASTE 113 GM TUBE TOP PRN (21:36)
[2017-07-25 03:11] LABS: Basophils # 0.1 10*3/uL (0.0-0.2); Basophils % 0.4 % (0.0-0.8); Eosinophils # 0.1 10*3/uL (0.0-0.87); Eosinophils % 0.4 % (0.00-10.9); Hematocrit 31.9 VOL% (35.7-47.0); Hemoglobin 10.5 GM/DL (12.0-16.0); Immature Granulocytes % 2.5 %; Immature Granulocytes Absolute 0.32 #; Lymphocytes # 1.9 10*3/uL (1.4-4.0); Lymphocytes % 14.8 % (21.3-54.2); Mean Corpuscular HGB Conc 32.9 GM/DL (32-36); Mean Corpuscular Hemoglobin 30 PG (27-34); Mean Corpuscular Volume 89.6 FL (87-102); Monocytes # 1.3 10*3/uL (0.11-0.8); Monocytes % 9.9 % (1.7-12.7); Neutrophils # 9.3 10*3/uL (1.4-7.4); Platelet Count 194 T/CUMM (130-400); Red Blood Count 3.56 MC/CUMM (3.8-5.5); Red Cell Distribution Width 18.9 % (9.3-17.3); White Blood Count 12.9 T/CUMM (4-12)
[2017-07-25 04:19] LABS: Albumin 2.2 G/DL (3.4-5.0); Bilirubin,Direct 0.18 MG/DL (0.0-0.20); Bilirubin,Indirect 0.4 MG/DL (0.0-1.0); Bilirubin,Total 0.6 MG/DL (0.2-1.0); CKMB % 4.8 %; Calcium 7.9 MG/DL (8.5-10.1); Magnesium 1.8 MG/DL (1.8-2.4); Osmolality,Calculated 260.9 MOS/KG (273-304); Potassium 3.8 MMOL/L (3.5-5.1); Total Protein 5.5 G/DL (6.4-8.3)
[2017-07-25 04:21] LABS: Troponin I Only 0.29 NG/ML (0.00-0.045)
[2017-07-25] MEDS: ASPIRIN EC 325 MG TABLET PO SCH (10:07)
[2017-07-25] MEDS: ALPRAZolam 0.5 MG TABLET PO PRN ×2 (10:07→15:47)
[2017-07-25] MEDS: METOPROLOL TARTRATE 25 MG TABLET PO SCH ×2 (10:07→21:14)
[2017-07-25] MEDS: AMIODARONE 200 MG TABLET PO SCH (10:07)
[2017-07-25] MEDS: hydroCHLOROthiazide 12.5 MG CAPSULE PO SCH (10:07)
[2017-07-25] MEDS: DOCUSATE SODIUM 100 MG CAPSULE PO SCH (10:07)
[2017-07-25] MEDS: PANTOPRAZOLE 40 MG TABLET PO SCH (10:07)
[2017-07-25] MEDS: CHLORHEXIDINE 0.12% ORAL RINSE 60 ML BOTTLE SWISH/SPIT SCH ×2 (10:08→21:14)
[2017-07-25] MEDS: ZINC OXIDE PASTE 113 GM TUBE TOP PRN (10:08)
[2017-07-25] MEDS: FERROUS SULFATE 325 MG TABLET PO SCH (10:08)
[2017-07-25] MEDS: DILTIAZEM 30 MG TABLET PO SCH ×3 (10:08→21:14)
[2017-07-25] MEDS: ZINC OXIDE PASTE 113 GM TUBE TOP SCH ×2 (10:09→21:15)
[2017-07-25] MEDS: oxyCODONE/ACETAMINOPHEN 5-325 MG TABLET PO PRN (19:02)
[2017-07-25] MEDS: ZALEPLON 5 MG CAPSULE PO PRN (21:14)
[2017-07-26] MEDS: oxyCODONE/ACETAMINOPHEN 5-325 MG TABLET PO PRN ×3 (00:15→21:30)
[2017-07-26] MEDS: ALPRAZolam 0.5 MG TABLET PO PRN ×3 (00:16→16:59)
[2017-07-26] MEDS: DILTIAZEM 30 MG TABLET PO SCH ×3 (09:41→21:30)
[2017-07-26] MEDS: DOCUSATE SODIUM 100 MG CAPSULE PO SCH (09:41)
[2017-07-26] MEDS: hydroCHLOROthiazide 12.5 MG CAPSULE PO SCH (09:41)
[2017-07-26] MEDS: ASPIRIN EC 325 MG TABLET PO SCH (09:42)
[2017-07-26] MEDS: PANTOPRAZOLE 40 MG TABLET PO SCH (09:42)
[2017-07-26] MEDS: METOPROLOL TARTRATE 25 MG TABLET PO SCH ×2 (09:42→21:30)
[2017-07-26] MEDS: AMIODARONE 200 MG TABLET PO SCH (09:42)
[2017-07-26] MEDS: FERROUS SULFATE 325 MG TABLET PO SCH (09:43)
[2017-07-26] MEDS: ZINC OXIDE PASTE 113 GM TUBE TOP SCH ×2 (09:44→21:30)
[2017-07-26] MEDS: CHLORHEXIDINE 0.12% ORAL RINSE 60 ML BOTTLE SWISH/SPIT SCH ×2 (09:44→21:29)
[2017-07-26] MEDS: ZALEPLON 5 MG CAPSULE PO PRN (21:30)
[2017-07-27] MEDS: oxyCODONE/ACETAMINOPHEN 5-325 MG TABLET PO PRN ×2 (04:00→20:31)
[2017-07-27] MEDS: ALPRAZolam 0.5 MG TABLET PO PRN ×2 (04:01→20:31)
[2017-07-27] MEDS ORDERED: DEXTROSE 50% 25 GM/50 ML VIAL IV PRN (09:56)
[2017-07-27] MEDS ORDERED: GLUCAGON 1 MG VIAL IM PRN (09:56)
[2017-07-27] MEDS ORDERED: SODIUM CHLORIDE 0.9% 1,000 ML IV SCH ×2 (10:00)
[2017-07-27 10:09] LABS: Allen Test Positive
[2017-07-27 10:10] LABS: ABG Base Excess 3.4 MMOL/L (-2.5-2.5); ABG HCO3 26.2 MMOL/L (20-26); ABG Oxygen Saturation 96.9 % (95-100); ABG PH 7.505 (7.35-7.45); ABG PO2 82.8 MM HG (80-95); ABG TCO2 27.3 MMOL/L (23-27)
[2017-07-27] MEDS: FERROUS SULFATE 325 MG TABLET PO SCH (10:35)
[2017-07-27] MEDS: AMIODARONE 200 MG TABLET PO SCH ×2 (11:01→11:31)
[2017-07-27] MEDS: DOCUSATE SODIUM 100 MG CAPSULE PO SCH (11:01)
[2017-07-27] MEDS: ASPIRIN EC 325 MG TABLET PO SCH ×2 (11:01→11:31)
[2017-07-27] MEDS: DILTIAZEM 30 MG TABLET PO SCH ×4 (11:01→20:25)
[2017-07-27] MEDS: ZINC OXIDE PASTE 113 GM TUBE TOP SCH ×2 (11:01→20:26)
[2017-07-27] MEDS: hydroCHLOROthiazide 12.5 MG CAPSULE PO SCH ×2 (11:02→11:30)
[2017-07-27] MEDS: PANTOPRAZOLE 40 MG TABLET PO SCH (11:02)
[2017-07-27] MEDS: METOPROLOL TARTRATE 25 MG TABLET PO SCH ×3 (11:02→20:25)
[2017-07-27] MEDS: CHLORHEXIDINE 0.12% ORAL RINSE 60 ML BOTTLE SWISH/SPIT SCH ×2 (11:02→20:36)
[2017-07-27 11:28] LABS: Calcium 7.8 MG/DL (8.5-10.1); Osmolality,Calculated 258.5 MOS/KG (273-304); Potassium 4.2 MMOL/L (3.5-5.1)
[2017-07-27 11:51] LABS: Apearance,Urine Slightly Hazy (Clear); Bilirubin,Urine Negative (Negative); Blood, Urine Moderate mg/dL (Negative); Glucose,Urine (UA) Negative (Negative); Granular Casts,Urine 6 /LPF (0-1); Hyaline Casts,Urine 24 /LPF (0-3); Ketones,Urine Negative (Negative); Nitrite,Urine Negative (Negative); Protein,Urine >=500 MG/DL; RBC,Urine 5 /HPF (0-4); Squamous Epithelial Cell,Urine Occasional /HPF (0-10); Urine Color Yellow (Yellow); Urine Specific Gravity 1.018 (1.001-1.035); Urine Urobilinogen < 2.0 EU/DL (0.2-1.0); WBC,Urine 2 /HPF (0-6)
[2017-07-27] MEDS: SODIUM CHLORIDE 0.9% 1,000 ML IV SCH (12:29)
[2017-07-27] MEDS ORDERED: FUROSEMIDE 40 MG/4 ML VIAL IV ONE (12:35)
[2017-07-27] MEDS: CEFEPIME 1,000 MG in SODIUM CHLORIDE 0.9% 50 ML IV SCH (13:38)
[2017-07-27] MEDS: ALBUMIN 25% 25 GM in PREMIX 1 EACH IV SCH ×2 (18:12→23:47)
[2017-07-27] MEDS: FUROSEMIDE 40 MG/4 ML VIAL IV SCH (18:46)
[2017-07-27] MEDS: SERTRALINE 50 MG TABLET PO SCH (20:25)
[2017-07-28] MEDS: FUROSEMIDE 40 MG/4 ML VIAL IV SCH ×2 (00:24→06:49)
[2017-07-28 04:41] LABS: Basophils % 0.1 % (0.0-0.8); Eosinophils % 0.1 % (0.00-10.9); Hematocrit 27.1 VOL% (35.7-47.0); Hemoglobin 9.2 GM/DL (12.0-16.0); Immature Granulocytes % 1.5 %; Immature Granulocytes Absolute 0.26 #; Lymphocytes # 1.3 10*3/uL (1.4-4.0); Lymphocytes % 7.4 % (21.3-54.2); Mean Corpuscular HGB Conc 33.9 GM/DL (32-36); Mean Corpuscular Hemoglobin 30 PG (27-34); Mean Corpuscular Volume 89.1 FL (87-102); Mean Platelet Volume 10.5 FL (9.6-12.0); Monocytes # 1.2 10*3/uL (0.11-0.8); Neutrophils # 14.8 10*3/uL (1.4-7.4); Neutrophils % 83.9 % (38.7-73.9); Platelet Count 139 T/CUMM (130-400); Red Blood Count 3.04 MC/CUMM (3.8-5.5); Red Cell Distribution Width 20.2 % (9.3-17.3); White Blood Count 17.7 T/CUMM (4-12)
[2017-07-28 05:02] LABS: Calcium 7.9 MG/DL (8.5-10.1); Magnesium 1.7 MG/DL (1.8-2.4); Osmolality,Calculated 261.4 MOS/KG (273-304); Potassium 4.2 MMOL/L (3.5-5.1)
[2017-07-28] MEDS: SODIUM CHLORIDE 0.9% 1,000 ML IV SCH ×2 (05:09→23:00)
[2017-07-28 05:33] LABS: Albumin 2.8 G/DL (3.4-5.0); Bilirubin,Direct 0.41 MG/DL (0.0-0.20); Bilirubin,Indirect 0.4 MG/DL (0.0-1.0); Bilirubin,Total 0.8 MG/DL (0.2-1.0); Total Protein 5.4 G/DL (6.4-8.3)
[2017-07-28] MEDS: ALBUMIN 25% 25 GM in PREMIX 1 EACH IV SCH (06:13)
[2017-07-28] MEDS: NITROGLYCERIN DRIP 50 MG/250 ML BOTTLE IV SCH ×2 (07:18→12:39)
[2017-07-28] MEDS ORDERED: LEVOFLOXACIN INJ 500 MG in PREMIX 1 EACH IV ONE (09:00)
[2017-07-28] MEDS: METOPROLOL TARTRATE 25 MG TABLET PO SCH ×2 (09:42→21:30)
[2017-07-28] MEDS: DOCUSATE SODIUM 100 MG CAPSULE PO SCH (09:42)
[2017-07-28] MEDS: DILTIAZEM 30 MG TABLET PO SCH ×3 (09:42→21:29)
[2017-07-28] MEDS: FERROUS SULFATE 325 MG TABLET PO SCH (09:42)
[2017-07-28] MEDS: AMIODARONE 200 MG TABLET PO SCH (09:42)
[2017-07-28] MEDS: PANTOPRAZOLE 40 MG TABLET PO SCH (09:42)
[2017-07-28] MEDS: ASPIRIN EC 325 MG TABLET PO SCH (09:42)
[2017-07-28] MEDS: ACETAMINOPHEN 325 MG TABLET PO PRN (09:42)
[2017-07-28] MEDS: CHLORHEXIDINE 0.12% ORAL RINSE 60 ML BOTTLE SWISH/SPIT SCH ×2 (09:43→21:30)
[2017-07-28] MEDS: ZINC OXIDE PASTE 113 GM TUBE TOP SCH ×2 (09:43→23:11)
[2017-07-28] MEDS: CEFEPIME 1,000 MG in SODIUM CHLORIDE 0.9% 50 ML IV SCH (13:29)
[2017-07-28] MEDS: SERTRALINE 50 MG TABLET PO SCH (21:29)
[2017-07-29 03:39] LABS: Basophils % 0.1 % (0.0-0.8); Eosinophils % 0.1 % (0.00-10.9); Hemoglobin 9.7 GM/DL (12.0-16.0); Immature Granulocytes % 2.1 %; Immature Granulocytes Absolute 0.34 #; Lymphocytes # 1.3 10*3/uL (1.4-4.0); Lymphocytes % 8.1 % (21.3-54.2); Mean Corpuscular HGB Conc 33.4 GM/DL (32-36); Mean Corpuscular Hemoglobin 30 PG (27-34); Mean Corpuscular Volume 90.9 FL (87-102); Mean Platelet Volume 10.7 FL (9.6-12.0); Monocytes # 1.1 10*3/uL (0.11-0.8); Monocytes % 6.8 % (1.7-12.7); Neutrophils # 13.5 10*3/uL (1.4-7.4); Neutrophils % 82.8 % (38.7-73.9); Platelet Count 135 T/CUMM (130-400); Red Blood Count 3.19 MC/CUMM (3.8-5.5); Red Cell Distribution Width 20.8 % (9.3-17.3); White Blood Count 16.3 T/CUMM (4-12)
[2017-07-29 03:47] LABS: Calcium 7.7 MG/DL (8.5-10.1); Osmolality,Calculated 261.5 MOS/KG (273-304); Potassium 4.5 MMOL/L (3.5-5.1)
[2017-07-29 07:15] LABS: Anti SS-A Antibodies < 16 EU/ML; Anti SS-B Antibodies < 16 EU/ML
[2017-07-29] MEDS: ASPIRIN EC 325 MG TABLET PO SCH (08:56)
[2017-07-29] MEDS: FERROUS SULFATE 325 MG TABLET PO SCH (08:56)
[2017-07-29] MEDS: METOPROLOL TARTRATE 25 MG TABLET PO SCH ×2 (08:56→20:51)
[2017-07-29] MEDS: AMIODARONE 200 MG TABLET PO SCH (08:57)
[2017-07-29] MEDS: DILTIAZEM 30 MG TABLET PO SCH ×3 (08:57→20:51)
[2017-07-29] MEDS: DOCUSATE SODIUM 100 MG CAPSULE PO SCH (08:57)
[2017-07-29] MEDS: PANTOPRAZOLE 40 MG TABLET PO SCH (08:57)
[2017-07-29] MEDS: CHLORHEXIDINE 0.12% ORAL RINSE 60 ML BOTTLE SWISH/SPIT SCH ×2 (09:01→21:00)
[2017-07-29] MEDS: LEVOFLOXACIN INJ 250 MG in PREMIX 1 EACH IV SCH (09:02)
[2017-07-29] MEDS: MEGESTROL ES 125 MG/ML 30 ML/BOTTLE PO SCH (09:10)
[2017-07-29] MEDS: methylPREDNISolone SOD SUC 40 MG/1 ML VIAL IV SCH ×2 (09:25→18:58)
[2017-07-29] MEDS: ZINC OXIDE PASTE 113 GM TUBE TOP SCH ×2 (16:12→21:01)
[2017-07-29] MEDS: CEFEPIME 1,000 MG in SODIUM CHLORIDE 0.9% 50 ML IV SCH (16:13)
[2017-07-29] MEDS: SODIUM CHLORIDE 0.9% 1,000 ML IV SCH (18:58)
[2017-07-29] MEDS: SERTRALINE 50 MG TABLET PO SCH (20:51)
[2017-07-29] MEDS ORDERED: FUROSEMIDE 40 MG/4 ML VIAL IV ONE (21:07)
[2017-07-30] MEDS: methylPREDNISolone SOD SUC 40 MG/1 ML VIAL IV SCH ×4 (00:49→18:12)
[2017-07-30 03:27] LABS: Basophils % 0.1 % (0.0-0.8); Hematocrit 30.8 VOL% (35.7-47.0); Hemoglobin 10.3 GM/DL (12.0-16.0); Immature Granulocytes % 3.3 %; Immature Granulocytes Absolute 0.37 #; Lymphocytes # 1.1 10*3/uL (1.4-4.0); Lymphocytes % 9.7 % (21.3-54.2); Mean Corpuscular HGB Conc 33.4 GM/DL (32-36); Mean Corpuscular Hemoglobin 31 PG (27-34); Mean Corpuscular Volume 92.2 FL (87-102); Mean Platelet Volume 10.9 FL (9.6-12.0); Monocytes # 0.4 10*3/uL (0.11-0.8); Monocytes % 3.8 % (1.7-12.7); Neutrophils # 9.3 10*3/uL (1.4-7.4); Neutrophils % 83.1 % (38.7-73.9); Platelet Count 204 T/CUMM (130-400); Red Blood Count 3.34 MC/CUMM (3.8-5.5); Red Cell Distribution Width 20.9 % (9.3-17.3); White Blood Count 11.1 T/CUMM (4-12)
[2017-07-30 03:54] LABS: Calcium 7.8 MG/DL (8.5-10.1); Magnesium 2.1 MG/DL (1.8-2.4); Osmolality,Calculated 269.5 MOS/KG (273-304); Potassium 5.2 MMOL/L (3.5-5.1)
[2017-07-30] MEDS ORDERED: FUROSEMIDE 40 MG/4 ML VIAL IV ONE (04:00)
[2017-07-30] MEDS: FERROUS SULFATE 325 MG TABLET PO SCH (10:07)
[2017-07-30] MEDS: ASPIRIN EC 325 MG TABLET PO SCH (10:08)
[2017-07-30] MEDS: PANTOPRAZOLE 40 MG TABLET PO SCH (10:09)
[2017-07-30] MEDS: DOCUSATE SODIUM 100 MG CAPSULE PO SCH (10:10)
[2017-07-30] MEDS: MEGESTROL ES 125 MG/ML 30 ML/BOTTLE PO SCH (10:15)
[2017-07-30] MEDS: DILTIAZEM 30 MG TABLET PO SCH ×3 (10:17→21:56)
[2017-07-30] MEDS: METOPROLOL TARTRATE 25 MG TABLET PO SCH ×2 (10:18→21:55)
[2017-07-30] MEDS: AMIODARONE 200 MG TABLET PO SCH (10:18)
[2017-07-30] MEDS: CHLORHEXIDINE 0.12% ORAL RINSE 60 ML BOTTLE SWISH/SPIT SCH ×2 (10:19→21:56)
[2017-07-30] MEDS: LEVOFLOXACIN INJ 250 MG in PREMIX 1 EACH IV SCH (10:20)
[2017-07-30] MEDS: SODIUM CHLORIDE 0.9% 1,000 ML IV SCH (10:21)
[2017-07-30] MEDS: CEFEPIME 1,000 MG in SODIUM CHLORIDE 0.9% 50 ML IV SCH (13:54)
[2017-07-30] MEDS: ZINC OXIDE PASTE 113 GM TUBE TOP SCH ×2 (15:57→21:57)
[2017-07-30] MEDS: SERTRALINE 50 MG TABLET PO SCH (21:56)
[2017-07-31] MEDS: methylPREDNISolone SOD SUC 40 MG/1 ML VIAL IV SCH ×3 (03:50→17:59)
[2017-07-31] MEDS: SODIUM CHLORIDE 0.9% 1,000 ML IV SCH (03:50)
[2017-07-31 05:34] LABS: Basophils % 0.1 % (0.0-0.8); Hematocrit 31.8 VOL% (35.7-47.0); Hemoglobin 10.5 GM/DL (12.0-16.0); Immature Granulocytes % 6.1 %; Immature Granulocytes Absolute 0.89 #; Lymphocytes # 1.1 10*3/uL (1.4-4.0); Lymphocytes % 7.8 % (21.3-54.2); Mean Corpuscular Hemoglobin 31 PG (27-34); Mean Corpuscular Volume 93.5 FL (87-102); Mean Platelet Volume 10.6 FL (9.6-12.0); Monocytes # 1.3 10*3/uL (0.11-0.8); Monocytes % 8.9 % (1.7-12.7); NRBC # 0.02 10*3/uL; Neutrophils # 11.3 10*3/uL (1.4-7.4); Neutrophils % 77.1 % (38.7-73.9); Platelet Count 264 T/CUMM (130-400); Red Cell Distribution Width 21.7 % (9.3-17.3); White Blood Count 14.6 T/CUMM (4-12)
[2017-07-31 05:56] LABS: Calcium 7.9 MG/DL (8.5-10.1); Magnesium 2.4 MG/DL (1.8-2.4); Osmolality,Calculated 276.1 MOS/KG (273-304); Potassium 5.2 MMOL/L (3.5-5.1)
[2017-07-31 06:05] LABS: Band Neutrophils 1 % (0-10); Lymphocytes 7 % (20-55); Segmented Neutrophils 84 % (50-85); Total Cells Counted 100
[2017-07-31 06:06] LABS: Burr Cells Slight; Hypochromasia 1+; Platelet Estimate Adequate
[2017-07-31] MEDS: DOCUSATE SODIUM 100 MG CAPSULE PO SCH (08:44)
[2017-07-31] MEDS: DILTIAZEM 30 MG TABLET PO SCH ×3 (08:44→21:28)
[2017-07-31] MEDS: ASPIRIN EC 325 MG TABLET PO SCH (08:44)
[2017-07-31] MEDS: MEGESTROL ES 125 MG/ML 30 ML/BOTTLE PO SCH (08:44)
[2017-07-31] MEDS: FERROUS SULFATE 325 MG TABLET PO SCH (08:45)
[2017-07-31] MEDS: ZINC OXIDE PASTE 113 GM TUBE TOP SCH ×2 (08:45→21:28)
[2017-07-31] MEDS: METOPROLOL TARTRATE 25 MG TABLET PO SCH ×2 (08:45→21:28)
[2017-07-31] MEDS: PANTOPRAZOLE 40 MG TABLET PO SCH (08:45)
[2017-07-31] MEDS: CHLORHEXIDINE 0.12% ORAL RINSE 60 ML BOTTLE SWISH/SPIT SCH ×2 (08:45→21:28)
[2017-07-31] MEDS: AMIODARONE 200 MG TABLET PO SCH (08:45)
[2017-07-31] MEDS ORDERED: FUROSEMIDE 40 MG/4 ML VIAL IV ONE (13:41)
[2017-07-31] MEDS: CEFEPIME 1,000 MG in SODIUM CHLORIDE 0.9% 50 ML IV SCH (14:14)
[2017-07-31] MEDS: SERTRALINE 50 MG TABLET PO SCH (21:28)
[2017-08-01] MEDS: methylPREDNISolone SOD SUC 40 MG/1 ML VIAL IV SCH ×3 (02:28→18:18)
[2017-08-01 06:33] LABS: Basophils % 0.2 % (0.0-0.8); Hematocrit 33.5 VOL% (35.7-47.0); Immature Granulocytes % 5.5 %; Immature Granulocytes Absolute 0.91 #; Lymphocytes # 1.2 10*3/uL (1.4-4.0); Lymphocytes % 7.1 % (21.3-54.2); Mean Corpuscular HGB Conc 32.8 GM/DL (32-36); Mean Corpuscular Hemoglobin 31 PG (27-34); Mean Corpuscular Volume 94.1 FL (87-102); Mean Platelet Volume 10.6 FL (9.6-12.0); Monocytes # 1.3 10*3/uL (0.11-0.8); Monocytes % 7.7 % (1.7-12.7); NRBC # 0.03 10*3/uL; Neutrophils % 79.5 % (38.7-73.9); Platelet Count 277 T/CUMM (130-400); Red Blood Count 3.56 MC/CUMM (3.8-5.5); Red Cell Distribution Width 22.1 % (9.3-17.3); White Blood Count 16.4 T/CUMM (4-12)
[2017-08-01 06:46] LABS: Calcium 8.6 MG/DL (8.5-10.1); Magnesium 2.2 MG/DL (1.8-2.4); Osmolality,Calculated 283.1 MOS/KG (273-304); Potassium 5.5 MMOL/L (3.5-5.1)
[2017-08-01] MEDS: ALUMINUM/MAGNES/SIMETH MAX STR 30 ML UDCUP PO PRN (08:15)
[2017-08-01] MEDS: ASPIRIN EC 325 MG TABLET PO SCH (08:16)
[2017-08-01] MEDS: DOCUSATE SODIUM 100 MG CAPSULE PO SCH (08:16)
[2017-08-01] MEDS: METOPROLOL TARTRATE 25 MG TABLET PO SCH ×2 (08:16→21:05)
[2017-08-01] MEDS: PANTOPRAZOLE 40 MG TABLET PO SCH (08:16)
[2017-08-01] MEDS: DILTIAZEM 30 MG TABLET PO SCH ×3 (08:16→21:04)
[2017-08-01] MEDS: ZINC OXIDE PASTE 113 GM TUBE TOP SCH ×2 (08:17→21:05)
[2017-08-01] MEDS: CHLORHEXIDINE 0.12% ORAL RINSE 60 ML BOTTLE SWISH/SPIT SCH ×2 (08:17→21:05)
[2017-08-01] MEDS: FERROUS SULFATE 325 MG TABLET PO SCH (08:17)
[2017-08-01] MEDS: MEGESTROL ES 125 MG/ML 30 ML/BOTTLE PO SCH (08:20)
[2017-08-01] MEDS: FUROSEMIDE 40 MG/4 ML VIAL IV SCH (08:22)
[2017-08-01] MEDS: CEFEPIME 1,000 MG in SODIUM CHLORIDE 0.9% 50 ML IV SCH ×2 (13:30→15:32)
[2017-08-01] MEDS: SERTRALINE 50 MG TABLET PO SCH (21:04)
[2017-08-02] MEDS: methylPREDNISolone SOD SUC 40 MG/1 ML VIAL IV SCH ×3 (03:52→18:05)
[2017-08-02 06:31] LABS: Basophils # 0.1 10*3/uL (0.0-0.2); Basophils % 0.3 % (0.0-0.8); Hematocrit 33.3 VOL% (35.7-47.0); Immature Granulocytes Absolute 1.14 #; Lymphocytes # 1.3 10*3/uL (1.4-4.0); Lymphocytes % 5.7 % (21.3-54.2); Mean Corpuscular Hemoglobin 31 PG (27-34); Mean Corpuscular Volume 94.1 FL (87-102); Mean Platelet Volume 10.4 FL (9.6-12.0); Monocytes # 2.1 10*3/uL (0.11-0.8); Monocytes % 9.1 % (1.7-12.7); NRBC # 0.05 10*3/uL; Neutrophils # 18.1 10*3/uL (1.4-7.4); Neutrophils % 79.9 % (38.7-73.9); Platelet Count 306 T/CUMM (130-400); Red Blood Count 3.54 MC/CUMM (3.8-5.5); Red Cell Distribution Width 22.4 % (9.3-17.3); White Blood Count 22.6 T/CUMM (4-12)
[2017-08-02 06:45] LABS: Calcium 8.6 MG/DL (8.5-10.1); Magnesium 2.5 MG/DL (1.8-2.4); Osmolality,Calculated 288.1 MOS/KG (273-304); Potassium 5.8 MMOL/L (3.5-5.1)
[2017-08-02 07:46] LABS: Hypochromasia 1+; Lymphocytes 1 % (20-55); Macrocytosis 1+; Segmented Neutrophils 94 % (50-85); Total Cells Counted 100
[2017-08-02 07:47] LABS: Platelet Estimate Adequate
[2017-08-02] MEDS: FERROUS SULFATE 325 MG TABLET PO SCH ×2 (08:27→11:23)
[2017-08-02] MEDS: MEGESTROL ES 125 MG/ML 30 ML/BOTTLE PO SCH (08:31)
[2017-08-02] MEDS: ASPIRIN EC 325 MG TABLET PO SCH ×2 (08:32→11:23)
[2017-08-02] MEDS: FUROSEMIDE 40 MG/4 ML VIAL IV SCH (08:32)
[2017-08-02] MEDS: METOPROLOL TARTRATE 25 MG TABLET PO SCH ×2 (08:32→21:22)
[2017-08-02] MEDS: DOCUSATE SODIUM 100 MG CAPSULE PO SCH ×2 (08:32→11:23)
[2017-08-02] MEDS: DILTIAZEM 30 MG TABLET PO SCH ×3 (08:32→21:22)
[2017-08-02] MEDS: CHLORHEXIDINE 0.12% ORAL RINSE 60 ML BOTTLE SWISH/SPIT SCH ×3 (08:33→21:23)
[2017-08-02] MEDS: ZINC OXIDE PASTE 113 GM TUBE TOP SCH ×2 (08:33→21:23)
[2017-08-02] MEDS: PANTOPRAZOLE 40 MG TABLET PO SCH ×2 (08:33→11:24)
[2017-08-02] MEDS: ACETAMINOPHEN 325 MG TABLET PO PRN (08:36)
[2017-08-02] MEDS ORDERED: DEXTROSE 50% 25 GM/50 ML VIAL IV PRN (10:14)
[2017-08-02] MEDS ORDERED: GLUCAGON 1 MG VIAL IM PRN (10:14)
[2017-08-02] MEDS ORDERED: ONDANSETRON 4 MG/2 ML VIAL IV PRN (10:14)
[2017-08-02] MEDS ORDERED: POTASSIUM CHLORIDE 20 MEQ TABLET PO PRN (10:14)
[2017-08-02] MEDS ORDERED: MAGNESIUM SULF RIDER 4 GM in PREMIX 1 EACH IV PRN (10:14)
[2017-08-02] MEDS ORDERED: oxyCODONE/ACETAMINOPHEN 5-325 MG TABLET PO PRN (10:14)
[2017-08-02] MEDS ORDERED: SODIUM CHLOR 0.45% KCL 20 MEQ 20 MEQ/1,000 ML BAG IV SCH (10:14)
[2017-08-02] MEDS ORDERED: MAGNESIUM HYDROXIDE SUSP 30 ML UDCUP PO PRN (10:14)
[2017-08-02] MEDS ORDERED: MAGNESIUM SULF RIDER 2 GM in PREMIX 1 EACH IV PRN (10:14)
[2017-08-02] MEDS ORDERED: ALUMINUM/MAGNES/SIMETH MAX STR 30 ML UDCUP PO PRN (10:14)
[2017-08-02] MEDS ORDERED: ACETAMINOPHEN 325 MG TABLET PO PRN (10:14)
[2017-08-02] MEDS: ALPRAZolam 0.25 MG TABLET PO PRN (18:15)
[2017-08-02] MEDS: SERTRALINE 50 MG TABLET PO SCH (21:22)
[2017-08-03] MEDS: methylPREDNISolone SOD SUC 40 MG/1 ML VIAL IV SCH ×3 (02:59→17:33)
[2017-08-03 04:53] LABS: Basophils % 0.1 % (0.0-0.8); Hematocrit 32.9 VOL% (35.7-47.0); Hemoglobin 10.7 GM/DL (12.0-16.0); Immature Granulocytes % 4.9 %; Immature Granulocytes Absolute 1.07 #; Lymphocytes # 0.9 10*3/uL (1.4-4.0); Lymphocytes % 4.1 % (21.3-54.2); Mean Corpuscular HGB Conc 32.5 GM/DL (32-36); Mean Corpuscular Hemoglobin 31 PG (27-34); Mean Corpuscular Volume 93.7 FL (87-102); Mean Platelet Volume 10.4 FL (9.6-12.0); Monocytes # 1.6 10*3/uL (0.11-0.8); Monocytes % 7.5 % (1.7-12.7); NRBC # 0.05 10*3/uL; Neutrophils # 18.2 10*3/uL (1.4-7.4); Neutrophils % 83.4 % (38.7-73.9); Platelet Count 264 T/CUMM (130-400); Red Blood Count 3.51 MC/CUMM (3.8-5.5); Red Cell Distribution Width 22.8 % (9.3-17.3); White Blood Count 21.8 T/CUMM (4-12)
[2017-08-03 05:17] LABS: Lymphocytes 2 % (20-55); Segmented Neutrophils 92 % (50-85); Total Cells Counted 100
[2017-08-03 05:18] LABS: Giant Platelets Few; Hypochromasia 1+; Macrocytosis Slight; Platelet Estimate Adequate
[2017-08-03 05:31] LABS: Albumin 2.6 G/DL (3.4-5.0); Bilirubin,Direct 0.18 MG/DL (0.0-0.20); Bilirubin,Indirect 0.5 MG/DL (0.0-1.0); Bilirubin,Total 0.7 MG/DL (0.2-1.0); Calcium 8.8 MG/DL (8.5-10.1); Magnesium 2.5 MG/DL (1.8-2.4); Osmolality,Calculated 287.2 MOS/KG (273-304); Total Protein 5.5 G/DL (6.4-8.3)
[2017-08-03 05:37] LABS: Potassium 6.2 MMOL/L (3.5-5.1)
[2017-08-03] MEDS: ZINC OXIDE PASTE 113 GM TUBE TOP SCH ×2 (09:45→21:12)
[2017-08-03] MEDS: FUROSEMIDE 40 MG/4 ML VIAL IV SCH ×2 (09:45→17:34)
[2017-08-03] MEDS: ALPRAZolam 0.25 MG TABLET PO PRN ×2 (09:46→21:11)
[2017-08-03] MEDS: ASPIRIN EC 325 MG TABLET PO SCH (09:47)
[2017-08-03] MEDS: DOCUSATE SODIUM 100 MG CAPSULE PO SCH (09:47)
[2017-08-03] MEDS: DILTIAZEM 30 MG TABLET PO SCH (09:47)
[2017-08-03] MEDS: FERROUS SULFATE 325 MG TABLET PO SCH (09:47)
[2017-08-03] MEDS: METOPROLOL TARTRATE 25 MG TABLET PO SCH ×2 (09:47→21:10)
[2017-08-03] MEDS: PANTOPRAZOLE 40 MG TABLET PO SCH (09:48)
[2017-08-03] MEDS: CHLORHEXIDINE 0.12% ORAL RINSE 60 ML BOTTLE SWISH/SPIT SCH ×2 (09:48→21:11)
[2017-08-03] MEDS ORDERED: SODIUM POLYSTYRENE SULFATE 15 GM/60 ML BOTTLE PO ONE (11:08)
[2017-08-03] MEDS ORDERED: DILTIAZEM 30 MG TABLET PO ONE (11:08)
[2017-08-03 13:11] LABS: Apearance,Urine CLOUDY (Clear); Bilirubin,Urine Negative (Negative); Blood, Urine Large mg/dL (Negative); Glucose,Urine (UA) Negative (Negative); Hyaline Casts,Urine 1 /LPF (0-3); Ketones,Urine Negative (Negative); Mucus,Urine Occasional /LPF (Occasional); Nitrite,Urine Negative (Negative); Protein,Urine 100 MG/DL; RBC,Urine 38 /HPF (0-4); Squamous Epithelial Cell,Urine Occasional /HPF (0-10); Urine Color Yellow (Yellow); Urine Specific Gravity 1.009 (1.001-1.035); Urine Urobilinogen < 2.0 EU/DL (0.2-1.0); WBC,Urine 138 /HPF (0-6)
[2017-08-03] MEDS ORDERED: SODIUM POLYSTYRENE SULFATE 15 GM/60 ML BOTTLE PO STA (14:40)
[2017-08-03] MEDS: MEGESTROL ES 125 MG/ML 30 ML/BOTTLE PO SCH (17:33)
[2017-08-03] MEDS: DILTIAZEM 60 MG TABLET PO SCH ×2 (17:33→21:10)
[2017-08-03] MEDS: ROSUVASTATIN 10 MG TABLET PO SCH (21:10)
[2017-08-03] MEDS: ZALEPLON 5 MG CAPSULE PO PRN (21:10)
[2017-08-03] MEDS: SERTRALINE 50 MG TABLET PO SCH (21:11)
[2017-08-04] MEDS: methylPREDNISolone SOD SUC 40 MG/1 ML VIAL IV SCH ×3 (03:26→17:44)
[2017-08-04 05:55] LABS: Basophils % 0.2 % (0.0-0.8); Hematocrit 31.7 VOL% (35.7-47.0); Hemoglobin 10.5 GM/DL (12.0-16.0); Immature Granulocytes % 4.4 %; Immature Granulocytes Absolute 1.14 #; Lymphocytes # 0.9 10*3/uL (1.4-4.0); Lymphocytes % 3.3 % (21.3-54.2); Mean Corpuscular HGB Conc 33.1 GM/DL (32-36); Mean Corpuscular Hemoglobin 31 PG (27-34); Mean Corpuscular Volume 93.2 FL (87-102); Mean Platelet Volume 10.7 FL (9.6-12.0); Monocytes # 1.8 10*3/uL (0.11-0.8); Monocytes % 6.9 % (1.7-12.7); NRBC # 0.06 10*3/uL; Neutrophils % 85.2 % (38.7-73.9); Platelet Count 236 T/CUMM (130-400); Red Cell Distribution Width 23.5 % (9.3-17.3); White Blood Count 25.8 T/CUMM (4-12)
[2017-08-04 06:22] LABS: Albumin 2.5 G/DL (3.4-5.0); Bilirubin,Direct 0.23 MG/DL (0.0-0.20); Bilirubin,Indirect 0.3 MG/DL (0.0-1.0); Bilirubin,Total 0.5 MG/DL (0.2-1.0); Calcium 9.1 MG/DL (8.5-10.1); Osmolality,Calculated 289.4 MOS/KG (273-304); Potassium 5.7 MMOL/L (3.5-5.1); Total Protein 5.6 G/DL (6.4-8.3)
[2017-08-04 06:24] LABS: Calcium 8.9 MG/DL (8.5-10.1); Magnesium 2.4 MG/DL (1.8-2.4); Osmolality,Calculated 294.2 MOS/KG (273-304); Potassium 5.7 MMOL/L (3.5-5.1)
[2017-08-04 06:25] LABS: Acanthocytes Few; Hypochromasia 1+; Lymphocytes 2 % (20-55); Macrocytosis 1+; Promyelocytes 1 %; Segmented Neutrophils 92 % (50-85); Total Cells Counted 100
[2017-08-04 06:26] LABS: Platelet Estimate Normal; Polychromasia Slight
[2017-08-04] MEDS: FUROSEMIDE 40 MG/4 ML VIAL IV SCH ×2 (12:18→17:44)
[2017-08-04] MEDS: DILTIAZEM 60 MG TABLET PO SCH ×2 (15:32)
[2017-08-04] MEDS: DOCUSATE SODIUM 100 MG CAPSULE PO SCH (15:32)
[2017-08-04] MEDS: ASPIRIN EC 325 MG TABLET PO SCH (15:32)
[2017-08-04] MEDS: PANTOPRAZOLE 40 MG TABLET PO SCH (15:33)
[2017-08-04] MEDS: ZINC OXIDE PASTE 113 GM TUBE TOP SCH ×2 (15:33→22:04)
[2017-08-04] MEDS: FERROUS SULFATE 325 MG TABLET PO SCH (15:33)
[2017-08-04] MEDS: CHLORHEXIDINE 0.12% ORAL RINSE 60 ML BOTTLE SWISH/SPIT SCH ×2 (15:33→22:05)
[2017-08-04] MEDS: METOPROLOL TARTRATE 25 MG TABLET PO SCH (15:33)
[2017-08-04] MEDS: MEGESTROL ES 125 MG/ML 30 ML/BOTTLE PO SCH (17:43)
[2017-08-04] MEDS ORDERED: SODIUM CHLORIDE 3% INJ 500 ML IV SCH (18:00)
[2017-08-04] MEDS ORDERED: FLUCONAZOLE 200 MG TABLET PO ONE (18:36)
[2017-08-04] MEDS: DILTIAZEM CD 180 MG CAPSULE PO SCH (22:03)
[2017-08-04] MEDS: METOPROLOL TARTRATE 50 MG TABLET PO SCH (22:03)
[2017-08-04] MEDS: ZALEPLON 5 MG CAPSULE PO PRN (22:03)
[2017-08-04] MEDS: ROSUVASTATIN 10 MG TABLET PO SCH (22:04)
[2017-08-04] MEDS: ALPRAZolam 0.25 MG TABLET PO PRN (22:04)
[2017-08-04] MEDS: SERTRALINE 50 MG TABLET PO SCH (22:05)
[2017-08-05] MEDS: ALBUTEROL 2.5 MG/3 ML NEB RESP TX SCH ×2 (00:18→07:36)
[2017-08-05] MEDS: methylPREDNISolone SOD SUC 40 MG/1 ML VIAL IV SCH ×2 (04:02→10:39)
[2017-08-05 08:35] VITALS: BP 123/58
[2017-08-05] MEDS ORDERED: DILTIAZEM CD 240 MG CAPSULE PO SCH (09:00)
[2017-08-05] MEDS ORDERED: FLUCONAZOLE 100 MG TABLET PO SCH (09:00)
[2017-08-05] MEDS ORDERED: METOPROLOL TARTRATE 50 MG TABLET PO SCH (09:00)
[2017-08-05] MEDS: FUROSEMIDE 40 MG/4 ML VIAL IV SCH (10:40)
[2017-08-05] MEDS: ASPIRIN EC 325 MG TABLET PO SCH (10:41)
[2017-08-05] MEDS: DOCUSATE SODIUM 100 MG CAPSULE PO SCH (10:41)
[2017-08-05] MEDS: DILTIAZEM CD 180 MG CAPSULE PO SCH (10:41)
[2017-08-05] MEDS: FERROUS SULFATE 325 MG TABLET PO SCH (10:42)
[2017-08-05] MEDS: ZINC OXIDE PASTE 113 GM TUBE TOP SCH (10:42)
[2017-08-05] MEDS: METOPROLOL TARTRATE 50 MG TABLET PO SCH (10:42)
[2017-08-05] MEDS: PANTOPRAZOLE 40 MG TABLET PO SCH (10:43)
[2017-08-05] MEDS: CHLORHEXIDINE 0.12% ORAL RINSE 60 ML BOTTLE SWISH/SPIT SCH (10:43)
[2017-08-05] MEDS: MEGESTROL ES 125 MG/ML 30 ML/BOTTLE PO SCH (10:43)
[2017-08-05] MEDS ORDERED: MORPHINE 2 MG/1 ML SYRINGE IV PRN (10:47)
== END 2017-08-05 11:25 | disposition expired | DRG 235 ==
LOC: N.ICU 09:33 → N.TELES 14:34 → N.CVR 07-10 09:48 → N.ICU 07-11 15:26 → N.TELES 07-16 12:07 → N.ICU 07-16 13:28 → N.CVR 07-16 14:21 → N.ICU 07-17 11:49 → N.TELES 07-20 09:17 → N.ICU 07-27 11:14 → N.TELES 08-02 10:21